=== PATIENT | male | born 1970 | race African-American/Black ===

== ENCOUNTER → 2016-08-06 | Outpatient (CLI) | payer BC ==
[~2016-08-06] MED LIST: DICY10CA59 PO; FAMO40TA72 PO; ONDA4TAB8 PO; PANT40TA2 PO; SUCR1ORA5 PO
--- NOTE | 2016-08-06 11:26 | Diagnostic Imaging Report ---
INDICATION: Headache. Dizziness. Lightheadedness. TECHNIQUE: Routine non contrast-enhanced axial images were obtained from the skull base to the vertex. COMPARISON: None. FINDINGS: The ventricles and cortical sulci are normal in size and contour. There is no midline shift or mass-effect. No acute intra-axial hemorrhage is seen. There are no abnormal areas of increased or decreased density to suggest acute hemorrhage or edema. No extra-axial masses or collections are present. The bony calvarium is intact. The visualized paranasal sinuses are unremarkable. The mastoid air cells are clear. IMPRESSION: 1. No acute intracranial abnormality. No CT evidence of mass, acute infarct or intracranial hemorrhage. Dictated by: Dictated on workstation # [id number]
[2016-08-06 11:35] LABS: MEAN PLATELET VOLUME 9.4 FL (7.4-10.4); RED BLOOD COUNT 5.43 10^6/uL (4.35-5.85); RED CELL DISTRIBUTION WIDTH 14.7 % (10.0-14.5); WHITE BLOOD COUNT 9.5 10^3/uL (4.3-11.0)
[2016-08-06 11:53] LABS: ALANINE AMINOTRANSFERASE 13 U/L (0-55); ALBUMIN 4.1 G/DL (3.2-4.5); ANION GAP 10 MMOL/L (5-14); ASPARTATE AMINO TRANSFERASE 15 U/L (5-34); BILIRUBIN,TOTAL 0.6 MG/DL (0.1-1.0); BLOOD UREA NITROGEN 14 MG/DL (7-18); BUN/CREATININE RATIO 12; CALCIUM 9.2 MG/DL (8.5-10.1); CARBON DIOXIDE 24 MMOL/L (21-32); CHLORIDE 107 MMOL/L (98-107); CREATININE SERUM 1.14 MG/DL (0.60-1.30); GFR ESTIMATED > 60; GLUCOSE 74 MG/DL (70-105); SODIUM 141 MMOL/L (135-145); TOTAL PROTEIN 7.5 G/DL (6.4-8.2)
[2016-08-06 12:13] LABS: THYROID STIMULATING HORMONE 0.87 UIU/ML (0.35-4.94)
--- NOTE | 2016-08-06 15:11 | Diagnostic Imaging Report ---
EXAMINATION: Cervical spine. INDICATION: Neck pain. AP, lateral, and odontoid views were obtained. There are no prior studies available for comparison. FINDINGS: The lateral view does show mild straightening of the cervical spine. This may be secondary to muscle spasm and/or positioning. There is also narrowing of the disc space at C6-7. The other intervertebral spaces are fairly well maintained. There is no fracture or acute bony abnormality evident. There is no sign of retropharyngeal edema. The lung apices are clear. Incidental note is made of metallic wires overlying the right maxilla. IMPRESSION: 1. There is no evidence for an acute bony abnormality. 2. There is degenerative disc disease at C6-7. If there is clinical concern regarding spinal stenosis or nerve root encroachment at this level, then MRI would be recommended for further study. If MRI is contemplated, then the nature of the metallic wires overlying the right maxilla should be determined to assure that the MRI exam can be performed safely. Dictated by: Dictated on workstation # [id number]
== END ==
LOC: RAD 10:53
PROVIDERS: ATTEND Nurse Practitioner Family
DX: M50.323 Other cervical disc degeneration at C6-C7 level (principal); R42 Dizziness and giddiness; R51 Headache
CPT/HCPCS: 36415; 70450; 72040; 80053; 84439; 84443; 85027

== ENCOUNTER → 2016-08-07 | Outpatient (CLI) | payer BC | LOC: CARD 13:03 | PROVIDERS: ATTEND Nurse Practitioner Family | DX: R07.9 Chest pain, unspecified (principal); R42 Dizziness and giddiness | CPT/HCPCS: 93005 ==

== ENCOUNTER 2016-08-27 18:01 | Emergency (ER) | payer BC ==
[~2016-08-27] VITALS: Ht 188 cm; Wt 86.2 kg
[2016-08-27] MEDS ORDERED: KETOROLAC 30 MG/ML VIAL IVP STA (18:05)
[2016-08-27] MEDS ORDERED: LACTATED RINGERS 1,000 ML IV ONE (18:05)
--- NOTE | 2016-08-27 18:11 | ED Abdominal Pain ---
General Stated Complaint: STOMACH PAIN Source of Information: Patient History of Present Illness Time Seen By Provider: 18:00 Initial Comments PT ARRIVES VIA POV--PT IN POSITION ON WAITING ROOM FLOOR AND WANTED WHEELCHAIR TO GET TO ROOM C/O SEVERE MID ABDOMINAL PAIN SINCE 1500 TODAY--BEGAN WHILE AT WORK C/O NAUSEA AND VOMITING MULTIPLE TIMES SINCE 1500 --UNKNOWN #--STATES "ALL DAY SINCE 3:00 PM" NO DIARRHEA NO FEVER PT STATES HE HAS HAD PANCREATITIS IN THE PAST AND THIS FEELS THE SAME DENIES ANY ALCOHOL USE FOR YEARS STATES HE HAS NOT EATEN OR DRANK ANYTHING SINCE YESTERDAY PT WANTING DILAUDID SOON HE ARRIVES. PCP: [facility] Allergies and Home Medications Allergies Coded Allergies: No Known Drug Allergies (Unverified , 08/27/16) Home Medications Dicyclomine HCl 10 Mg Capsule, 10 MG PO Q6H PRN for ABDOMINAL PAIN, #15 Prescribed by: SHARMIN GARCIA on 08/27/162034 Famotidine 40 Mg Tablet, 40 MG PO DAILY, #30 Prescribed by: SHARMIN GARCIA on 08/27/162034 Ondansetron 4 Mg Tab.rapdis, 8 MG PO Q4H, #15 Prescribed by: SHARMIN GARCIA on 08/27/162034 Pantoprazole Sodium 40 Mg Tablet.dr, 40 MG PO DAILY, #15 Prescribed by: SHARMIN GARCIA on 08/27/162034 Sucralfate 1 Gm/10 Ml Oral.susp, 1 GM PO QID AC AND HS, #400 Prescribed by: SHARMIN GARCIA on 08/27/162034 Review of Systems Constitutional: no symptoms reported, No fever Respiratory: No Symptoms Reported Cardiovascular: No Symptoms Reported Gastrointestinal: See HPI, Abdominal Pain, Nausea, Poor Appetite, Poor Fluid Intake, Vomiting Genitourinary: No Symptoms Reported Musculoskeletal: no symptoms reported Skin: no symptoms reported Psychiatric/Neurological: No Symptoms Reported Endocrine: No Symptoms Reported Hematologic/Lymphatic: No Symptoms Reported Past Ishcple-Ppdmjc-Qvwhrb Hx Patient Social History Alcohol Use: Past History (HISTORY OF HEAVY USE/ABUSE--CLAIMS NONE IN YEARS, PER PT ON 08/27/16) Recreational Drug Use: No Smoking Status: Current Everyday Smoker Type Used: Cigars Surgeries HX Surgeries: Yes (EGD) Respiratory Hx Respiratory Disorders: No Cardiovascular Hx Cardiac Disorders: No Neurological Hx Neurological Disorders: No Reproductive System Hx Reproductive Disorders: No Genitourinary Hx Genitourinary Disorders: No Gastrointestinal Hx Gastrointestinal Disorders: Yes Gastrointestinal Disorders: Pancreatitis Musculoskeletal Hx Musculoskeletal Disorders: No Endocrine Hx Endocrine Disorders: No HEENT HX ENT Disorders: No Cancer Hx Cancer: No Psychosocial Hx Psychiatric Problems: No Integumentary HX Skin/Integumentary Disorder: No Blood Transfusions Hx Blood Disorders: No Physical Exam Vital Signs VS - Last 72 Hours, by Label 08/27/16 08/27/16 18:32 21:13 Temp 96.8 96.8 Pulse 70 74 Resp 18 18 B/P (MAP) 172/100 Pulse Ox 100 100 O2 Delivery Room Air Capillary Refill : General Appearance: WD/WN, other (VERY DRAMATIC, WRITHING, HOLDING MID ABDOMEN , MOANING. KICKING LEGS ON BED. 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, no motor/sensory deficits, alert, oriented x 3 Skin: normal color (PT IS BLACK), warm/dry Progress/Results/Core Measures Results/Orders Lab Results Laboratory Tests Test 08/27/16 18:08 08/27/16 20:46 Range/Units White Blood Count 16.7 H 4.3-11.0 10^3/uL Red Blood Count 4.93 4.35-5.85 10^6/uL Hemoglobin 14.6 13.3-17.7 G/DL Hematocrit 41 40-54 % Mean Corpuscular Volume 84 80-99 FL Mean Corpuscular Hemoglobin 30 25-34 PG Mean Corpuscular Hemoglobin Concent 35 32-36 G/DL Red Cell Distribution Width 14.4 10.0-14.5 % Platelet Count 238 130-400 10^3/uL Mean Platelet Volume 9.4 7.4-10.4 FL Neutrophils (%) (Auto) 58 42-75 % Lymphocytes (%) (Auto) 36 12-44 % Monocytes (%) (Auto) 6 0-12 % Eosinophils (%) (Auto) 1 0-10 % Basophils (%) (Auto) 0 0-10 % Neutrophils # (Auto) 9.6 H 1.8-7.8 X 10^3 Lymphocytes # (Auto) 5.9 H 1.0-4.0 X 10^3 Monocytes # (Auto) 1.0 0.0-1.0 X 10^3 Eosinophils # (Auto) 0.1 0.0-0.3 10^3/uL Basophils # (Auto) 0.0 0.0-0.1 10^3/uL Neutrophils % (Manual) 47 % Lymphocytes % (Manual) 51 % Monocytes % (Manual) 2 % Eosinophils % (Manual) 0 % Basophils % (Manual) 0 % Band Neutrophils 0 % Blood Morphology Comment NORMAL Prothrombin Time 13.4 12.2-14.7 SEC INR Comment 1.1 0.8-1.4 Activated Partial Thromboplast Time 31 24-35 SEC Sodium Level 141 135-145 MMOL/L Potassium Level 3.7 3.6-5.0 MMOL/L Chloride Level 107 98-107 MMOL/L Carbon Dioxide Level 20 L 21-32 MMOL/L Anion Gap 14 5-14 MMOL/L Blood Urea Nitrogen 16 7-18 MG/DL Creatinine 0.98 0.60-1.30 MG/DL Estimat Glomerular Filtration Rate > 60 BUN/Creatinine Ratio 16 Glucose Level 90 70-105 MG/DL Calcium Level 9.2 8.5-10.1 MG/DL Magnesium Level 1.8 1.8-2.4 MG/DL Total Bilirubin 0.8 0.1-1.0 MG/DL Aspartate Amino Transf (AST/SGOT) 27 5-34 U/L Alanine Aminotransferase (ALT/SGPT) 16 0-55 U/L Alkaline Phosphatase 89 40-136 U/L Total Protein 7.2 6.4-8.2 G/DL Albumin 4.1 3.2-4.5 G/DL Amylase Level 160 H 25-125 U/L Lipase 166 H 8-78 U/L Serum Alcohol < 10 <10 MG/DL Urine Color YELLOW Urine Clarity CLEAR Urine pH 8 5-9 Urine Specific [place] 1.010 L 1.016-1.022 Urine Protein NEGATIVE NEGATIVE Urine Glucose (UA) NEGATIVE NEGATIVE Urine Ketones 3+ H NEGATIVE Urine Nitrite NEGATIVE NEGATIVE Urine Bilirubin NEGATIVE NEGATIVE Urine Urobilinogen NORMAL NORMAL MG/DL Urine Leukocyte Esterase NEGATIVE NEGATIVE Urine RBC (Auto) NEGATIVE NEGATIVE Urine RBC NONE /HPF Urine WBC RARE /HPF Urine Crystals NONE /LPF Urine Bacteria NEGATIVE /HPF Urine Casts NONE /LPF Urine Mucus NEGATIVE /LPF Urine Culture Indicated NO Urine Opiates Screen NEGATIVE NEGATIVE Urine Oxycodone Screen NEGATIVE NEGATIVE Urine Methadone Screen NEGATIVE NEGATIVE Urine Propoxyphene Screen NEGATIVE NEGATIVE Urine Barbiturates Screen NEGATIVE NEGATIVE Ur Tricyclic Antidepressants Screen NEGATIVE NEGATIVE Urine Phencyclidine Screen NEGATIVE NEGATIVE Urine Amphetamines Screen NEGATIVE NEGATIVE Urine Methamphetamines Screen NEGATIVE NEGATIVE Urine Benzodiazepines Screen NEGATIVE NEGATIVE Urine Cocaine Screen NEGATIVE NEGATIVE Urine Cannabinoids Screen POSITIVE H NEGATIVE My Orders Orders - SHARMIN GARCIA DO Saline Lock/Iv-Start (08/27/16 18:05) Monitor-Rhythm Ecg Trace Only (08/27/16 18:05) Ct Abdomen/Pelvis W (08/27/16 18:05) Alcohol (08/27/16 18:05) Amylase (08/27/16 18:05) Cbc With Automated Diff (08/27/16 18:05) Comprehensive Metabolic Panel (08/27/16 18:05) Drug Screen Stat (Urine) (08/27/16 18:05) Lipase (08/27/16 18:05) Magnesium (08/27/16 18:05) Protime With Inr (08/27/16 18:05) Partial Thromboplastin Time (08/27/16 18:05) Ua Culture If Indicated (08/27/16 18:05) Acute Abd Series (08/27/16 18:05) Ondansetron Injection (Zofran Injectio (08/27/16 18:15) Ketorolac Injection (Toradol Injection) (08/27/16 18:05) Saline Lock/Iv-Start (08/27/16 18:05) Lactated Ringers (Lr 1000 Ml Iv Solution (08/27/16 18:05) Pantoprazole Injection (Protonix Injecti (08/27/16 18:15) Famotidine Injection (Pepcid Injection) (08/27/16 18:15) Iohexol Injection (Omnipaque 350 Mg/Ml 1 (08/27/16 18:15) Ns (Ivpb) (Sodium Chloride 0.9% Ivpb Bag (08/27/16 18:15) Manual Differential (08/27/16 18:08) Dicyclomine Injection (Bentyl Injection) (08/27/16 18:45) Diphenhydramine Injection (Benadryl Inje (08/27/16 18:45) Lidocaine 2% Viscous 15 Ml (Xylocaine Vi (08/27/16 20:15) Antacid Suspension (Mylanta Suspension (08/27/16 20:15) Medications Given in ED Current Medications Medications Dose Ordered Sig/Ayaka Route Start Time Stop Time Status Last Admin Dose Admin Al Hydrox/Mg Hydrox/Simethicone 30 ml ONCE ONCE PO 08/27/16 20:15 08/27/16 20:16 DC 08/27/16 20:11 30 ML Dicyclomine HCl 20 mg ONCE ONCE IM 08/27/16 18:45 08/27/16 18:46 DC 08/27/16 18:46 20 MG Diphenhydramine HCl 50 mg ONCE ONCE IVP 08/27/16 18:45 08/27/16 18:46 DC 08/27/16 18:46 50 MG Famotidine 40 mg ONCE ONCE IVP 08/27/16 18:15 08/27/16 18:16 DC 08/27/16 18:29 40 MG Iohexol 100 ml ONCE ONCE IV 08/27/16 18:15 08/27/16 18:16 DC 08/27/16 19:05 100 ML Lactated Ringer's 1,000 ml @ 0 mls/hr Q0M ONCE IV 08/27/16 18:05 08/27/16 18:08 DC 08/27/16 18:30 0 MLS/HR Lidocaine HCl 5 ml ONCE ONCE PO 08/27/16 20:15 08/27/16 20:16 DC 08/27/16 20:11 5 ML Ondansetron HCl 8 mg ONCE ONCE IVP 08/27/16 18:15 08/27/16 18:16 DC 08/27/16 18:29 8 MG Pantoprazole 40 mg ONCE ONCE IV 08/27/16 18:15 08/27/16 18:16 DC 08/27/16 18:29 40 MG Sodium Chloride 100 ml ONCE ONCE IV 08/27/16 18:15 08/27/16 18:16 DC 08/27/16 19:05 80 ML Vital Signs/I&O Vital Sign - Last 12Hours 08/27/16 08/27/16 18:32 21:13 Temp 96.8 96.8 Pulse 70 74 Resp 18 18 B/P (MAP) 172/100 Pulse Ox 100 100 O2 Delivery Room Air Intake and Output 08/28/16 00:00 Intake Total 1000 ml Balance 1000 ml Progress Note : Progress Note VOMITED ON ARRIVAL--LARGE AMOUNT OF UNDIGESTED FOOD GIVEN MULTIPLE MEDS AND NO FURTHER VOMITING PT RESTING QUIETLY/ SLEEPING IN PRONE POSITION DURING REMAINDER OF ER STAY PT WALKS UPRIGHT AND MOVES QUICKLY WITHOUT ANY DIFFICULTY AT DISMISSAL. Diagnostic Imaging Comments ACUTE ABDOMEN XRAYS--NO ACUTE PROCESS CT ABDOMEN/PELVIS--MILD THICKENING OF DISTAL ESOPHAGUS, OTHERWISE NO ACUTE PROCESS PER RADIOLOGIST REPORTS @ 1952 Reviewed: Reviewed by Me Departure Impression Impression: Primary Impression: Esophagitis Additional Impression: MILD PANCREATITIS Disposition: HOME, SELF-CARE Condition: Improved Departure-Patient Inst. Referrals: [facility] [place] Instructions: Acid Reflux (Gastroesophageal Reflux Disease), Adult (DC) , Pancreatitis (DC) Add. Discharge Instructions: CLEAR LIQUIDS--WATER, BROTH, JELLO, GATORADE NO FOOD OF ANY KIND UNTIL YOU ARE RECHECKED AND CLEARED BY YOUR DR FOLLOW UP WITH YOUR DR IN 1-2 DAYS FOR FURTHER CARE Scripts Ondansetron (Zofran Odt) 4 Mg Tab.rapdis 8 MG PO Q4H for Nausea/Vomiting, #15 TAB Prov: JOSEALIEA K DO 08/27/16 Famotidine (Pepcid) 40 Mg Tablet 40 MG PO DAILY, #30 TAB Prov: JOSE,SHARMIN K DO 08/27/16 Pantoprazole Sodium (Protonix) 40 Mg Tablet.dr 40 MG PO DAILY, #15 TAB Prov: JOSEALIEA K DO 08/27/16 Sucralfate (Carafate) 1 Gm/10 Ml Oral.susp 1 GM PO QID AC AND HS, #400 ML Prov: JOSE,SHARMIN K DO 08/27/16 Dicyclomine HCl (Bentyl) 10 Mg Capsule 10 MG PO Q6H Y for ABDOMINAL PAIN, #15 CAP Prov: JOSE,SHARMIN K DO 08/27/16 JOSESHARMIN K DO Aug 27, 2016 18:11
[2016-08-27] MEDS ORDERED: IOHEXOL 350 MG/ML 100 ML (OMNIPAQUE 350) VIAL IV ONE (18:15)
[2016-08-27] MEDS ORDERED: NS 100 ML (IVPB) BAG IV ONE (18:15)
[2016-08-27] MEDS ORDERED: ONDANSETRON 4 MG/2 ML (SDV) Z0FRAN IVP ONE (18:15)
[2016-08-27] MEDS ORDERED: PANTOPRAZOLE 40 MG/10 ML (PROTONIX) VIAL IV ONE (18:15)
[2016-08-27] MEDS ORDERED: FAMOTIDINE 20MG/2ML IV (PEPCID) IVP ONE (18:15)
[2016-08-27 18:16] LABS: BASOPHILS % (AUTO) 0 % (0-10); EOSINOPHILS # (AUTO) 0.1 10^3/uL (0.0-0.3); EOSINOPHILS % (AUTO) 1 % (0-10); LYMPHOCYTES # (AUTO) 5.9 X 10^3 (1.0-4.0); LYMPHOCYTES % (AUTO) 36 % (12-44); MEAN CORPUSCULAR HEMOGLOBIN 30 PG (25-34); MEAN CORPUSCULAR HGB CONC 35 G/DL (32-36); MEAN CORPUSCULAR VOLUME 84 FL (80-99); MEAN PLATELET VOLUME 9.4 FL (7.4-10.4); MONOCYTES % (AUTO) 6 % (0-12); NEUTROPHILS # (AUTO) 9.6 X 10^3 (1.8-7.8); NEUTROPHILS % (AUTO) 58 % (42-75); PLATELET COUNT 238 10^3/uL (130-400); RED BLOOD COUNT 4.93 10^6/uL (4.35-5.85); RED CELL DISTRIBUTION WIDTH 14.4 % (10.0-14.5); WHITE BLOOD COUNT 16.7 10^3/uL (4.3-11.0)
[2016-08-27 18:26] LABS: INR 1.1 (0.8-1.4); PROTHROMBIN TIME PATIENT 13.4 SEC (12.2-14.7)
[2016-08-27 18:38] LABS: ALANINE AMINOTRANSFERASE 16 U/L (0-55); ALBUMIN 4.1 G/DL (3.2-4.5); AMYLASE 160 U/L (25-125); ANION GAP 14 MMOL/L (5-14); ASPARTATE AMINO TRANSFERASE 27 U/L (5-34); BILIRUBIN,TOTAL 0.8 MG/DL (0.1-1.0); BLOOD UREA NITROGEN 16 MG/DL (7-18); BUN/CREATININE RATIO 16; CALCIUM 9.2 MG/DL (8.5-10.1); CARBON DIOXIDE 20 MMOL/L (21-32); CHLORIDE 107 MMOL/L (98-107); CREATININE SERUM 0.98 MG/DL (0.60-1.30); GFR ESTIMATED > 60; GLUCOSE 90 MG/DL (70-105); LIPASE 166 U/L (8-78); MAGNESIUM 1.8 MG/DL (1.8-2.4); POTASSIUM 3.7 MMOL/L (3.6-5.0); SODIUM 141 MMOL/L (135-145); TOTAL PROTEIN 7.2 G/DL (6.4-8.2)
[2016-08-27 18:43] LABS: BAND NEUTROPHILS 0 %; BASOPHILS % (MANUAL) 0 %; EOSINOPHILS % (MANUAL) 0 %; LYMPHOCYTES % (MANUAL) 51 %; NEUTROPHILS % (MANUAL) 47 %
[2016-08-27] MEDS ORDERED: DICYCLOMINE 10 MG/ML (BENTYL) 2 ML AMP IM ONE (18:45)
[2016-08-27] MEDS ORDERED: diphenhydrAMINE 50 MG/ML INJ (BENADRYL) IVP ONE (18:45)
[2016-08-27 18:51] LABS: ALCOHOL < 10 MG/DL (<10)
--- NOTE | 2016-08-27 19:16 | Diagnostic Imaging Report ---
INDICATION: Abdominal pain, nausea, and vomiting. COMPARISON: None available. TECHNIQUE: Four radiographs of the chest and abdomen dated August 27, 2016. FINDINGS: The cardiac silhouette is within normal limits. No significant pulmonary vascular congestion. The lungs are clear. No pleural effusion. No pneumothorax. No acute osseous abnormality within the chest. Gas and stool is noted within the colon, including extending to the lower pelvis. No dilated loops of small bowel. No differential air-fluid levels. No free air. No suspicious calcifications overlying the renal shadows. Phleboliths within the lower pelvis. No acute osseous abnormality. IMPRESSION: No acute abnormality identified. Dictated by: Dictated on workstation # [id number]
--- NOTE | 2016-08-27 19:42 | Diagnostic Imaging Report ---
PROCEDURE: CT abdomen and pelvis with contrast. TECHNIQUE: Multiple contiguous axial images were obtained through the abdomen and pelvis after administration of intravenous contrast. INDICATION: Abdominal pain. COMPARISON: None available. FINDINGS: The visualized lung bases are clear. Mild thickening of the distal esophagus. The liver, spleen, adrenal glands, and pancreas are unremarkable. The gallbladder is unremarkable. The kidneys are unremarkable. No aneurysmal dilatation of the abdominal aorta. Minimal vascular calcifications. The urinary bladder is unremarkable. What is felt to relate to the appendix is unremarkable. No evidence of bowel obstruction or pneumatosis. No significant adenopathy, free air, or free fluid within the abdomen or pelvis. 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 Partial lumbarization of the S1 vertebral body. Endplate degenerative changes are noted at L4/L5 and L5/S1. No acute osseous abnormality. IMPRESSION: 1. Mild thickening of the distal esophagus, favored to relate to underlying esophagitis. 2. No evidence of acute appendicitis. 3. Additional findings as described above. Dictated by: Dictated on workstation # [id number]
[2016-08-27] MEDS ORDERED: ANTACID SUSP 30 ML UDC (MYLANTA) PO ONE (20:15)
[2016-08-27] MEDS ORDERED: LIDOCAINE 2% VISCOUS 15 ML UDC PO ONE (20:15)
[2016-08-27] MEDS ORDERED: PANT40TA2 PO (20:35)
[2016-08-27] MEDS ORDERED: SUCR1ORA5 PO (20:35)
[2016-08-27] MEDS ORDERED: FAMO40TA72 PO (20:35)
[2016-08-27] MEDS ORDERED: DICY10CA59 PO (20:35)
[2016-08-27] MEDS ORDERED: ONDA4TAB8 PO (20:35)
[2016-08-27 20:55] LABS: BILIRUBIN,URINE NEGATIVE (NEGATIVE); KETONES,URINE 3+ (NEGATIVE); LEUKOCYTE ESTERASE ,URINE NEGATIVE (NEGATIVE); NITRITE,URINE NEGATIVE (NEGATIVE); PH,URINE 8 (5-9); PROTEIN,URINE NEGATIVE (NEGATIVE); UROBILINOGEN,URINE NORMAL (NORMAL)
[2016-08-27 21:07] LABS: WBC,URINE RARE /HPF
[2016-08-27 21:13] VITALS: BP 137/96
== END 2016-08-27 21:13 | disposition home or self-care (01) ==
LOC: EDUNIT# 18:01 → ER 18:03
DX: K20.9 Esophagitis, unspecified (principal); R11.2 Nausea with vomiting, unspecified; F17.210 Nicotine dependence, cigarettes, uncomplicated; Z87.19 Personal history of other diseases of the digestive system
CPT/HCPCS: 36415; 74022; 74177; 80053; 80306; 80320; 81000; 82150; 83690; 83735; 85007; 85027; 85610; 85730; 93041; 96361; 96372; 96374; 96375

== ENCOUNTER 2016-12-11 21:50 | Emergency (ER) | payer SELFPAY ==
[~2016-12-11] VITALS: Ht 198.1 cm; Wt 90.7 kg
[2016-12-11] MEDS ORDERED: fentaNYL INJECTION 100 MCG/2 ML AMP IVP STA ×2 (21:56→23:28)
[2016-12-11] MEDS ORDERED: LORazepam INJ 2 MG/ML (ATIVAN) VIAL IVP ONE (22:00)
[2016-12-11 22:04] LABS: BASOPHILS # (AUTO) 0.1 10^3/uL (0.0-0.1); BASOPHILS % (AUTO) 0 % (0-10); EOSINOPHILS % (AUTO) 0 % (0-10); LYMPHOCYTES # (AUTO) 3.8 X 10^3 (1.0-4.0); LYMPHOCYTES % (AUTO) 18 % (12-44); MEAN CORPUSCULAR HEMOGLOBIN 29 PG (25-34); MEAN CORPUSCULAR HGB CONC 35 G/DL (32-36); MEAN CORPUSCULAR VOLUME 83 FL (80-99); MEAN PLATELET VOLUME 9.7 FL (7.4-10.4); MONOCYTES # (AUTO) 1.1 X 10^3 (0.0-1.0); MONOCYTES % (AUTO) 5 % (0-12); NEUTROPHILS # (AUTO) 15.5 X 10^3 (1.8-7.8); NEUTROPHILS % (AUTO) 76 % (42-75); PLATELET COUNT 237 10^3/uL (130-400); RED BLOOD COUNT 5.53 10^6/uL (4.35-5.85); RED CELL DISTRIBUTION WIDTH 14.6 % (10.0-14.5); WHITE BLOOD COUNT 20.5 10^3/uL (4.3-11.0)
--- NOTE | 2016-12-11 22:04 | ED Abdominal Pain ---
General Stated Complaint: ABD PAIN Source of Information: Patient, EMS Exam Limitations: No Limitations History of Present Illness Time Seen By Provider: 21:53 Initial Comments here by EMS with onset of central abdominal pain that goes up and down to the midline of the abdomen since 5 p.m. States he has severe cramping and pain. He is breathing fast and also has all over body cramping. Reports nausea and vomiting. EMS initiated IV did give 4 mg of Zofran IV and started 1 L normal saline bolus which is running. Patient denies other complaints Timing/Duration: 4-6 Hours Severity/Quality: Moderate, Severe Location: Other (central) Radiation: No Radiation (superior-inferior midline) Activities at Onset: None Modifying Factors: Worsens With Eating, Worsens With Movement, Worsens With Palpation, Worsens With Vomiting Associated Symptoms: No Back Pain, No Chest Pain, No Fever/Chills, Nausea/ Vomiting, No Swelling/Mass in Abdomen, No Weakness Allergies and Home Medications Allergies Coded Allergies: No Known Drug Allergies (Unverified , 08/27/16) Home Medications Dicyclomine HCl 10 Mg Capsule, 10 MG PO Q6H PRN for ABDOMINAL PAIN, #15 Prescribed by: SHARMIN GARCIA on 08/27/162034 Famotidine 40 Mg Tablet, 40 MG PO DAILY, #30 Prescribed by: SHARMIN GARCIA on 08/27/162034 Ondansetron 4 Mg Tab.rapdis, 8 MG PO Q4H, #15 Prescribed by: SHARMIN GARCIA on 08/27/162034 Pantoprazole Sodium 40 Mg Tablet.dr, 40 MG PO DAILY, #15 Prescribed by: SHARMIN GARCIA on 08/27/162034 Sucralfate 1 Gm/10 Ml Oral.susp, 1 GM PO QID AC AND HS, #400 Prescribed by: SHARMIN GARCIA on 08/27/162034 Review of Systems Constitutional: see HPI, No chills, No fever EENTM: No Symptoms Reported Respiratory: See HPI, Shortness of Air Cardiovascular: No Symptoms Reported Gastrointestinal: See HPI, Abdominal Pain, Denies Diarrhea, Nausea, Vomiting Genitourinary: No Symptoms Reported Musculoskeletal: see HPI, No joint pain, muscle pain, muscle cramps Skin: no symptoms reported Psychiatric/Neurological: No Symptoms Reported All Other Systems Reviewed Negative Unless Noted: Yes Past Hhrtvgf-Yvlmhb-Bnnrmm Hx Patient Social History Alcohol Use: Denies Use Recreational Drug Use: No Smoking Status: Current Everyday Smoker Type Used: Cigars Recent Hopitalizations: No Surgeries HX Surgeries: Yes (EGD) Respiratory Hx Respiratory Disorders: No Cardiovascular Hx Cardiac Disorders: No Neurological Hx Neurological Disorders: No Reproductive System Hx Reproductive Disorders: No Genitourinary Hx Genitourinary Disorders: No Gastrointestinal Hx Gastrointestinal Disorders: Yes Gastrointestinal Disorders: Pancreatitis Musculoskeletal Hx Musculoskeletal Disorders: No Endocrine Hx Endocrine Disorders: No HEENT HX ENT Disorders: No Cancer Hx Cancer: No Psychosocial Hx Psychiatric Problems: No Integumentary HX Skin/Integumentary Disorder: No Blood Transfusions Hx Blood Disorders: No Reviewed Nursing Assessment Reviewed/Agree w Nursing PMH: Yes Family Medical History Significant Family History: No Pertinent Family Hx Physical Exam Vital Signs VS - Last 72 Hours, by Label 12/11/16 12/11/16 21:50 23:32 Temp 96.3 96.3 Pulse 69 Resp 20 B/P (MAP) 143/114 Pulse Ox 97 O2 Delivery Room Air Capillary Refill : General Appearance: WD/WN, moderate distress (abdominal pain and nausea) HEENT: PERRL/EOMI, pharynx normal Neck: full range of motion, supple Respiratory: lungs clear, normal breath sounds Cardiovascular: no murmur, tachycardia Peripheral Pulses: 2+ Dorsalis Pedis (R), 2+ Left Dors-Pedis (L), 2+ Radial Pulses (R), 2+ Radial Pulses (L) Gastrointestinal: soft, tenderness (global) Extremities: normal inspection, other (muscle tenderness throughout) Back: normal inspection, no CVA tenderness, no vertebral tenderness Neurologic/Psychiatric: alert, oriented x 3 Skin: normal color, warm/dry Progress/Results/Core Measures Results/Orders Lab Results Laboratory Tests Test 12/11/16 21:56 12/11/16 23:30 Range/Units White Blood Count 20.5 H 4.3-11.0 10^3/uL Red Blood Count 5.53 4.35-5.85 10^6/uL Hemoglobin 16.0 13.3-17.7 G/DL Hematocrit 46 40-54 % Mean Corpuscular Volume 83 80-99 FL Mean Corpuscular Hemoglobin 29 25-34 PG Mean Corpuscular Hemoglobin Concent 35 32-36 G/DL Red Cell Distribution Width 14.6 H 10.0-14.5 % Platelet Count 237 130-400 10^3/uL Mean Platelet Volume 9.7 7.4-10.4 FL Neutrophils (%) (Auto) 76 H 42-75 % Lymphocytes (%) (Auto) 18 12-44 % Monocytes (%) (Auto) 5 0-12 % Eosinophils (%) (Auto) 0 0-10 % Basophils (%) (Auto) 0 0-10 % Neutrophils # (Auto) 15.5 H 1.8-7.8 X 10^3 Lymphocytes # (Auto) 3.8 1.0-4.0 X 10^3 Monocytes # (Auto) 1.1 H 0.0-1.0 X 10^3 Eosinophils # (Auto) 0.0 0.0-0.3 10^3/uL Basophils # (Auto) 0.1 0.0-0.1 10^3/uL Neutrophils % (Manual) 77 % Lymphocytes % (Manual) 21 % Monocytes % (Manual) 1 % Eosinophils % (Manual) 0 % Basophils % (Manual) 0 % Band Neutrophils 1 % Blood Morphology Comment NORMAL Sodium Level 138 135-145 MMOL/L Potassium Level 4.0 3.6-5.0 MMOL/L Chloride Level 104 98-107 MMOL/L Carbon Dioxide Level 15 L 21-32 MMOL/L Anion Gap 19 H 5-14 MMOL/L Blood Urea Nitrogen 23 H 7-18 MG/DL Creatinine 1.98 H 0.60-1.30 MG/DL Estimat Glomerular Filtration Rate 45 BUN/Creatinine Ratio 12 Glucose Level 126 H 70-105 MG/DL Calcium Level 10.3 H 8.5-10.1 MG/DL Magnesium Level 2.1 1.8-2.4 MG/DL Total Bilirubin 1.3 H 0.1-1.0 MG/DL Aspartate Amino Transf (AST/SGOT) 20 5-34 U/L Alanine Aminotransferase (ALT/SGPT) 17 0-55 U/L Alkaline Phosphatase 101 40-136 U/L Total Creatine Kinase 325 H 30-200 U/L Total Protein 8.2 6.4-8.2 GM/DL Albumin 4.6 H 3.2-4.5 GM/DL Amylase Level 59 25-125 U/L Lipase 10 8-78 U/L Salicylates Level < 5.0 L 5.0-20.0 MG/DL Serum Alcohol < 10 <10 MG/DL Urine Color YELLOW Urine Clarity SLIGHTLY CLOUDY Urine pH 5 5-9 Urine Specific [place] 1.025 H 1.016-1.022 Urine Protein 3+ H NEGATIVE Urine Glucose (UA) NEGATIVE NEGATIVE Urine Ketones 3+ H NEGATIVE Urine Nitrite NEGATIVE NEGATIVE Urine Bilirubin 1+ H NEGATIVE Urine Urobilinogen 1 NORMAL MG/DL Urine Leukocyte Esterase 1+ H NEGATIVE Urine RBC (Auto) NEGATIVE NEGATIVE Urine RBC NONE /HPF Urine WBC 0-2 /HPF Urine Squamous Epithelial Cells RARE /HPF Urine Crystals PRESENT H /LPF Urine Calcium Oxalate Crystals FEW H /LPF Urine Bacteria MODERATE H /HPF Urine Casts PRESENT /LPF Urine Hyaline Casts 25-50 H /LPF Urine Mucus MODERATE H /LPF Urine Culture Indicated YES Urine Opiates Screen NEGATIVE NEGATIVE Urine Oxycodone Screen NEGATIVE NEGATIVE Urine Methadone Screen NEGATIVE NEGATIVE Urine Propoxyphene Screen NEGATIVE NEGATIVE Urine Barbiturates Screen NEGATIVE NEGATIVE Ur Tricyclic Antidepressants Screen NEGATIVE NEGATIVE Urine Phencyclidine Screen NEGATIVE NEGATIVE Urine Amphetamines Screen NEGATIVE NEGATIVE Urine Methamphetamines Screen NEGATIVE NEGATIVE Urine Benzodiazepines Screen NEGATIVE NEGATIVE Urine Cocaine Screen NEGATIVE NEGATIVE Urine Cannabinoids Screen POSITIVE H NEGATIVE My Orders Orders - CATHLEEN BERRY MD Alcohol (12/11/16 21:56) Amylase (12/11/16 21:56) Cbc With Automated Diff (12/11/16 21:56) Comprehensive Metabolic Panel (12/11/16 21:56) Drug Screen Stat (Urine) (12/11/16 21:56) Lipase (12/11/16 21:56) Magnesium (12/11/16 21:56) Salicylate (12/11/16 21:56) Ua Culture If Indicated (12/11/16 21:56) Fentanyl Injection (Sublimaze Injection (12/11/16 21:56) Lorazepam Injection (Ativan Injection) (12/11/16 22:00) Creatine Kinase (12/11/16 22:04) Manual Differential (12/11/16 21:56) Saline Lock/Iv-Start (12/11/16 23:26) Ns Iv 1000 Ml (Sodium Chloride 0.9%) (12/11/16 23:26) Fentanyl Injection (Sublimaze Injection (12/11/16 23:28) Famotidine Injection (Pepcid Injection) (12/11/16 23:28) Urine Culture (12/11/16 23:30) Ct Abdomen/Pelvis Wo (12/12/16 00:10) Medications Given in ED Current Medications Medications Dose Ordered Sig/Ayaka Route Start Time Stop Time Status Last Admin Dose Admin Lorazepam 0.5 mg ONCE ONCE IVP 12/11/16 22:00 12/11/16 22:01 DC 12/11/16 22:02 0.5 MG Sodium Chloride 1,000 ml @ 0 mls/hr Q0M ONCE IV 12/11/16 23:26 12/11/16 23:28 DC 12/11/16 23:32 999 MLS/HR Vital Signs/I&O Vital Sign - Last 12Hours 12/11/16 12/11/16 21:50 23:32 Temp 96.3 96.3 Pulse 69 Resp 20 B/P (MAP) 143/114 Pulse Ox 97 O2 Delivery Room Air Progress Note : Progress Note seen and evaluated. IV established by EMS. Labs, UA and UDS ordered. Complete normal saline 1 L bolus ordered. Ativan 0.5 mg IV and fentanyl 50 g IV ordered. Monitor patient. Improved after pain medicine and resting comfortably. Creatinine noted to be elevated as well as ketones in the urine. Repeat normal saline 1 L bolus ordered. Monitor patient. 2325: Pepcid 20 mg IV and fentanyl 75 g IV for stomach upset and cramping legs. Monitor patient. 0100: CT head and pelvis ordered due to elevated white count. 0200: Patient doing much better. By mouth challenge initiated. 0210: Tolerating fluids without difficulty. Patient remains feeling much better. I did discuss with the patient about marijuana use and cyclic vomiting and stomach disorder. He states that he knows he needs to not do that and will quit using marijuana. He will initiate [id number] treatment for gastritis concerns. This previously has been on medications for this. I also discussed with him about follow-up with a surgeon and he will call and make appointment. He will also seek local physician. Discharged home with return precautions. Patient verbalize understanding instructions and agreement with plan. Diagnostic Imaging Diagonstic Imaging: CT Plain Films/CT/US/NM/MRI: abdomen, pelvis Comments Motion artifact and upper abdomen. Appendix not definitively identified in its entirety. No acute inflammatory changes seen in the right lower quadrant. Small and large bowel loops appear unremarkable without obstruction or any acute inflammatory process. No hydronephrosis. No nephrolithiasis or urolithiasis. Reviewed: Reviewed [place] Study, Reviewed by Me Departure Impression Impression: Primary Impression: Nausea and vomiting Qualified Codes: G43.A0 - Cyclical vomiting, not intractable Additional Impression: Acute renal insufficiency Disposition: HOME, SELF-CARE Condition: Improved Departure-Patient Inst. Decision time for Depature: 02:14 Referrals: GENE GOMES MD (PCP/Family) Primary Care Physician Patient Instructions: Acute Abdomen (Belly Pain), Adult (DC), Dehydration, Adult (DC), Nausea and Vomiting, Adult (DC) Add. Discharge Instructions: It is very important that you drink plenty of fluids as your kidney function was elevated. I believe this is related to dehydration. You should avoid marijuana as this increases your risk for cyclic vomiting. It is important that you follow-up with a local physician. You should also follow up with the surgeon listed for recheck and further evaluation related to your stomach problems. Call Dr. Salinas office in the morning for follow-up appointment. Return for worse pain, fever, vomiting, weakness, breathing problems or other concerns as needed. I do recommend that you initiate a 6 week course (three 14 day packs) Of omeprazole 20 mg daily. You can pick this up in the generic pack at the local pharmacy or [facility]. CATHLEEN BERRY MD Dec 11, 2016 22:04
[2016-12-11 22:26] LABS: BAND NEUTROPHILS 1 %; BASOPHILS % (MANUAL) 0 %; EOSINOPHILS % (MANUAL) 0 %; LYMPHOCYTES % (MANUAL) 21 %; NEUTROPHILS % (MANUAL) 77 %
[2016-12-11 22:29] LABS: ALANINE AMINOTRANSFERASE 17 U/L (0-55); ALBUMIN 4.6 GM/DL (3.2-4.5); ALCOHOL < 10 MG/DL (<10); AMYLASE 59 U/L (25-125); ANION GAP 19 MMOL/L (5-14); ASPARTATE AMINO TRANSFERASE 20 U/L (5-34); BILIRUBIN,TOTAL 1.3 MG/DL (0.1-1.0); BLOOD UREA NITROGEN 23 MG/DL (7-18); BUN/CREATININE RATIO 12; CALCIUM 10.3 MG/DL (8.5-10.1); CARBON DIOXIDE 15 MMOL/L (21-32); CHLORIDE 104 MMOL/L (98-107); CREATININE SERUM 1.98 MG/DL (0.60-1.30); GFR ESTIMATED 45; GLUCOSE 126 MG/DL (70-105); LIPASE 10 U/L (8-78); MAGNESIUM 2.1 MG/DL (1.8-2.4); SALICYLATE < 5.0 MG/DL (5.0-20.0); SODIUM 138 MMOL/L (135-145); TOTAL PROTEIN 8.2 GM/DL (6.4-8.2)
[2016-12-11] MEDS ORDERED: NS IV 1000 ML 1,000 ML IV ONE (23:26)
[2016-12-11] MEDS ORDERED: FAMOTIDINE 20MG/2ML IV (PEPCID) IV STA (23:28)
[2016-12-11 23:38] LABS: KETONES,URINE 3+ (NEGATIVE); LEUKOCYTE ESTERASE ,URINE 1+ (NEGATIVE); NITRITE,URINE NEGATIVE (NEGATIVE); PH,URINE 5 (5-9); PROTEIN,URINE 3+ (NEGATIVE); UROBILINOGEN,URINE 1 MG/DL (NORMAL)
[2016-12-11 23:53] LABS: BILIRUBIN,URINE 1+ (NEGATIVE)
[2016-12-11 23:56] LABS: CALCIUM OXALATE CRYSTALS,UR FEW /LPF; SQUAMOUS EPITHELIAL CELL,UR RARE /HPF; WBC,URINE 0-2 /HPF
[2016-12-11 23:57] LABS: HYALINE CASTS, URINE 25-50 /LPF
[2016-12-12 02:30] VITALS: BP 100/78
--- NOTE | 2016-12-12 06:54 | Diagnostic Imaging Report ---
PROCEDURE: CT abdomen and pelvis without contrast. TECHNIQUE: Multiple contiguous axial images were obtained through the abdomen and pelvis without the use of intravenous contrast. INDICATION: Abdominal pain x2 years. Lung bases are clear. Liver appears normal. Gallbladder is present. Spleen is not enlarged. Kidneys and adrenals appear normal. Pancreas appears normal. Small bowel is not dilated. Colon appears normal. There is no intraperitoneal free air or free fluid. There is no evidence for appendicitis or other acute abnormalities in the abdomen. IMPRESSION: Negative CT abdomen/ pelvis. Dictated by: Dictated on workstation # [id number]
== END 2016-12-12 02:30 | disposition home or self-care (01) ==
LOC: EDUNIT# 21:50 → ER 21:51
DX: N28.9 Disorder of kidney and ureter, unspecified (principal); F17.290 Nicotine dependence, other tobacco product, uncomplicated; Z87.19 Personal history of other diseases of the digestive system
CPT/HCPCS: 36415; 74176; 80053; 80306; 80320; 80329; 81000; 82150; 82550; 83690; 83735; 85007; 85027; 87088; 96361; 96374; 96375; 96376

== ENCOUNTER 2017-08-20 12:17 | Emergency (ER) | payer BC ==
[~2017-08-20] VITALS: Ht 198.1 cm; Wt 86.2 kg
[2017-08-20 13:10] LABS: BASOPHILS # (AUTO) 0.1 10^3/uL (0.0-0.1); BASOPHILS % (AUTO) 1 % (0-10); EOSINOPHILS # (AUTO) 0.3 10^3/uL (0.0-0.3); EOSINOPHILS % (AUTO) 3 % (0-10); HEMATOCRIT 45 % (40-54); LYMPHOCYTES % (AUTO) 41 % (12-44); MEAN CORPUSCULAR HEMOGLOBIN 30 PG (25-34); MEAN CORPUSCULAR HGB CONC 34 G/DL (32-36); MEAN CORPUSCULAR VOLUME 89 FL (80-99); MEAN PLATELET VOLUME 9.6 FL (7.4-10.4); MONOCYTES # (AUTO) 0.6 X 10^3 (0.0-1.0); MONOCYTES % (AUTO) 7 % (0-12); NEUTROPHILS # (AUTO) 4.9 X 10^3 (1.8-7.8); NEUTROPHILS % (AUTO) 49 % (42-75); PLATELET COUNT 230 10^3/uL (130-400); RED BLOOD COUNT 5.03 10^6/uL (4.35-5.85); RED CELL DISTRIBUTION WIDTH 15.5 % (10.0-14.5); WHITE BLOOD COUNT 9.9 10^3/uL (4.3-11.0)
--- NOTE | 2017-08-20 13:10 | ED General ---
General Chief Complaint: Dizziness/Syncope Stated Complaint: POSS CARB MONO EXPOSURE Nursing Triage Note: pt reports dizziness/lightheadedness, moore, and generalized weakness x 2 weeks. pt reports last night his carbonmonoxide detector went off and he called the fire department. they told him his furnace was not safe and the levels in the house were high. he spent the night at a hotel but decided to get checked today. Nursing Sepsis Screen: No Definite Risk Source of Information: Patient Exam Limitations: No Limitations History of Present Illness Date Seen by Provider: Aug 20, 2017 Time Seen by Provider: 13:05 Initial Comments To ER with reports of dizziness, lightheadedness, headache, generalized weakness for 2 weeks. He called fire department last night because he suspected he may have a carbon monoxide issue. Fire department confirmed that he did have a, monoxide level that was elevated so he got a hotel room last night. He has not been in his health since last night. His symptoms are still present today. He denies chest pain or shortness of breath. He states that his monoxide issue is being taken care of as he is here. No syncope. Timing/Duration: 1-2 Days Severity: Moderate Associated Systoms: Headaches, Malaise, Nausea/Vomiting Allergies and Home Medications Allergies Coded Allergies: No Known Drug Allergies (Unverified , 08/27/16) Home Medications Dicyclomine HCl 10 Mg Capsule, 10 MG PO Q6H PRN for ABDOMINAL PAIN Prescribed by: SHARMIN GARCIA on 08/27/162034 Famotidine 40 Mg Tablet, 40 MG PO DAILY Prescribed by: SHARMIN GARCIA on 08/27/162034 Ondansetron 4 Mg Tab.rapdis, 8 MG PO Q4H Prescribed by: SHARMIN GARCIA on 08/27/162034 Pantoprazole Sodium 40 Mg Tablet.dr, 40 MG PO DAILY Prescribed by: SHARMIN GARCIA on 08/27/162034 Sucralfate 1 Gm/10 Ml Oral.susp, 1 GM PO QID AC AND HS Prescribed by: SHARMIN GARCIA on 08/27/162034 Patient Home Medication List Home Medication List Reviewed: Yes Constitutional: see HPI, malaise, weakness EENTM: see HPI Respiratory: no symptoms reported Cardiovascular: no symptoms reported Gastrointestinal: nausea Genitourinary: no symptoms reported Musculoskeletal: no symptoms reported Psychiatric/Neurological: Headache, Other (dizziness) Hematologic/Lymphatic: No Symptoms Reported Past Cbqpyed-Kqssgt-Dzmpum Hx Patient Social History Alcohol Use: Denies Use Recreational Drug Use: No Smoking Status: Current Everyday Smoker Type Used: Cigars Recent Foreign Travel: No Contact w/Someone Who Travel: No Recent Infectious Disease Expo: No Recent Hopitalizations: No Physical Abuse: No Sexual Abuse: No Mistreated: No Surgeries History of Surgeries: Yes (EGD) Respiratory History of Respiratory Disorde: No Cardiovascular History of Cardiac Disorders: No Neurological History of Neurological Disord: No Reproductive System Hx Reproductive Disorders: No Genitourinary History of Genitourinary Disor: No Gastrointestinal History of Gastrointestinal Di: Yes Gastrointestinal Disorders: Pancreatitis, Esophagitis Musculoskeletal History of Musculoskeletal Dis: No Endocrine History of Endocrine Disorders: No HEENT History of HEENT Disorders: No Cancer History of Cancer: No Psychosocial History of Psychiatric Problem: No Suicide Risk Score: 0 Integumentary History of Skin or Integumenta: No Blood Transfusions History of Blood Disorders: No Family Medical History Significant Family History: No Pertinent Family Hx Physical Exam Vital Signs Vital Signs - First Documented 08/20/17 12:56 Temp 97.2 Pulse 85 Resp 20 B/P (MAP) 129/95 (106) Pulse Ox 100 O2 Delivery Non Rebreather O2 Flow Rate 12.00 Capillary Refill : Less Than 3 Seconds General Appearance: No Apparent Distress, WD/WN Eyes: Bilateral Eye Normal Inspection, Bilateral Eye PERRL, Bilateral Eye EOMI HEENT: PERRL/EOMI, TMs Normal, Normal ENT Inspection, Pharynx Normal Neck: Full Range of Motion, Normal Inspection Respiratory: Normal Breath Sounds, No Accessory Muscle Use, No Respiratory Distress Cardiovascular: Regular Rate, Rhythm, Normal Peripheral Pulses Gastrointestinal: Normal Bowel Sounds, Non Tender, Soft Extremity: Normal Capillary Refill, Normal Inspection Neurologic/Psychiatric: Alert, Oriented x3, No Motor/Sensory Deficits Skin: Normal Color, Warm/Dry Progress/Results/Core Measures Suspected Sepsis Recent Fever Within 48 Hours: No Infection Criteria Present: None New/Unexplained Altered Menta: No Sepsis Screen: No Definite Risk Sepsis Diagnosis: SIRS Temperature:97.2 Pulse: 85 Respiratory Rate: 20 Laboratory Tests 08/20/17 12:43: White Blood Count 9.9 Blood Pressure 129 /95 Mean: 106 Laboratory Tests 08/20/17 12:43: Creatinine 0.88, Platelet Count 230, Total Bilirubin 0.9 Results/Orders Lab Results Laboratory Tests Test 08/20/17 12:43 08/20/17 13:27 08/20/17 14:59 Range/Units White Blood Count 9.9 4.3-11.0 10^3/uL Red Blood Count 5.03 4.35-5.85 10^6/uL Hemoglobin 15.0 13.3-17.7 G/DL Hematocrit 45 40-54 % Mean Corpuscular Volume 89 80-99 FL Mean Corpuscular Hemoglobin 30 25-34 PG Mean Corpuscular Hemoglobin Concent 34 32-36 G/DL Red Cell Distribution Width 15.5 H 10.0-14.5 % Platelet Count 230 130-400 10^3/uL Mean Platelet Volume 9.6 7.4-10.4 FL Neutrophils (%) (Auto) 49 42-75 % Lymphocytes (%) (Auto) 41 12-44 % Monocytes (%) (Auto) 7 0-12 % Eosinophils (%) (Auto) 3 0-10 % Basophils (%) (Auto) 1 0-10 % Neutrophils # (Auto) 4.9 1.8-7.8 X 10^3 Lymphocytes # (Auto) 4.0 1.0-4.0 X 10^3 Monocytes # (Auto) 0.6 0.0-1.0 X 10^3 Eosinophils # (Auto) 0.3 0.0-0.3 10^3/uL Basophils # (Auto) 0.1 0.0-0.1 10^3/uL Carboxyhemoglobin 12.1 H 5.2 H 0.5-2.5 % Sodium Level 138 135-145 MMOL/L Potassium Level 4.6 3.6-5.0 MMOL/L Chloride Level 107 98-107 MMOL/L Carbon Dioxide Level 22 21-32 MMOL/L Anion Gap 9 5-14 MMOL/L Blood Urea Nitrogen 12 7-18 MG/DL Creatinine 0.88 0.60-1.30 MG/DL Estimat Glomerular Filtration Rate > 60 BUN/Creatinine Ratio 14 Glucose Level 75 70-105 MG/DL Calcium Level 9.2 8.5-10.1 MG/DL Total Bilirubin 0.9 0.1-1.0 MG/DL Aspartate Amino Transf (AST/SGOT) 19 5-34 U/L Alanine Aminotransferase (ALT/SGPT) 9 0-55 U/L Alkaline Phosphatase 102 40-136 U/L Troponin I < 0.30 <0.30 NG/ML Total Protein 7.5 6.4-8.2 GM/DL Albumin 4.3 3.2-4.5 GM/DL Blood Gas Puncture Site RT WRIST Blood Gas Patient Temperature 97.5 Arterial Blood pH 7.51 H 7.37-7.43 Arterial Blood Partial Pressure CO2 27 L 35-45 MMHG Arterial Blood Partial Pressure O2 263 H 79-93 MMHG Arterial Blood HCO3 22 L 23-27 MMOL/L Arterial Blood Total CO2 22.8 21.0-31.0 MMOL/L Arterial Blood Oxygen Saturation 100 94-100 % Arterial Blood Base Excess -0.9 -2.5-2.5 MMOL/L Titi Test YES-POS Blood Gas Ventilator Setting NO Blood Gas Inspired Oxygen 12 L My Orders Orders - JOSE PÉREZ APRN Carboxyhemoglobin (08/20/17 12:46) Cbc With Automated Diff (08/20/17 13:01) Troponin I (08/20/17 13:01) Ekg Tracing (08/20/17 13:01) Comprehensive Metabolic Panel (08/20/17 13:01) Chest 1 View, Ap/Pa Only (08/20/17 13:01) Arterial Blood Gas (08/20/17 13:29) Carboxyhemoglobin (08/20/17 14:38) Vital Signs/I&O Vital Sign - Last 12Hours 08/20/17 12:56 Temp 97.2 Pulse 85 Resp 20 B/P (MAP) 129/95 (106) Pulse Ox 100 O2 Delivery Non Rebreather O2 Flow Rate 12.00 Capillary Refill : Less Than 3 Seconds Blood Pressure Mean: 106 Departure Communication (Admissions) Progress Notes Upon arrival to ER he was applied to nasal cannula at 3 L. After receiving his elevated carboxyhemoglobin test we applied a nonrebreather. We'll repeat carboxyhemoglobin level at the 2 hour haresh. Add additional testing to include chest x-ray EKG troponin and arterial blood gas 1519- sleeping in bed easily awaken to verbal stimuli. Nonrebreather remains in place. His carboxyhemoglobin has reduced by greater than one half. He is a smoker of 2 cigars per day so his baseline oxyhemoglobin level is expected to be high. It's 3:15 now, we will continue the nonrebreather until 4 in the we will discharge to home. He states he has someone working on the leak at his house now and if it is not fixed he will stay in a hotel tonight. Impression Impression: Primary Impression: Carbon monoxide poisoning Disposition: HOME, SELF-CARE (Is really good eye) Condition: Improved Departure-Patient Inst. Decision time for Depature: 15:32 Referrals: GENE GOMES MD (PCP/Family) Primary Care Physician Patient Instructions: Carbon Monoxide Poisoning Add. Discharge Instructions: 1. If the carbon monoxide is not fixed in your house or if the carbon monoxide level according to the fire department is still elevated you should stay in a hotel again tonight. Return to ER for any concerns. Follow-up with your doctor later this week for recheck. All discharge instructions reviewed with patient and/or family. Voiced understanding. JOSE PÉREZ APRN Aug 20, 2017 13:10
[2017-08-20 13:19] LABS: ALANINE AMINOTRANSFERASE 9 U/L (0-55); ALBUMIN 4.3 GM/DL (3.2-4.5); ALKALINE PHOSPHATASE 102 U/L (40-136); BILIRUBIN,TOTAL 0.9 MG/DL (0.1-1.0); BUN/CREATININE RATIO 14; CALCIUM 9.2 MG/DL (8.5-10.1); CARBON DIOXIDE 22 MMOL/L (21-32); CHLORIDE 107 MMOL/L (98-107); CREATININE SERUM 0.88 MG/DL (0.60-1.30); GFR ESTIMATED > 60; GLUCOSE 75 MG/DL (70-105); POTASSIUM 4.6 MMOL/L (3.6-5.0); SODIUM 138 MMOL/L (135-145); TOTAL PROTEIN 7.5 GM/DL (6.4-8.2)
--- NOTE | 2017-08-20 13:28 | Diagnostic Imaging Report ---
INDICATION: Possible carbon monoxide exposure. TECHNIQUE: Single-view chest 1:14 p.m. CORRELATION STUDY: 08/27/2016. FINDINGS: Heart size is borderline. Vasculature is within normal limits. Lung carnes are overall symmetrically well inflated. No infiltrate. No suggestion for effusion. No pneumothorax. IMPRESSION: 1. Negative-appearing portable chest. Dictated by: Dictated on workstation # [id number]
[2017-08-20 13:38] LABS: ABG BASE EXCESS -0.9 MMOL/L (-2.5-2.5); ABG OXYGEN SATURATION 100 % (94-100); ABG PCO2 27 MMHG (35-45); ABG PH 7.51 (7.37-7.43); ABG PO2 263 MMHG (79-93); ABG TCO2 22.8 MMOL/L (21.0-31.0)
[2017-08-20 13:39] LABS: ALLENS TEST YES-POS; INSPIRED O2 12 L; PATIENT TEMP 97.5; VENTILATOR NO
[2017-08-20 15:54] VITALS: BP 138/97
== END 2017-08-20 15:54 | disposition home or self-care (01) ==
LOC: EDUNIT# 12:17 → ER 12:20
DX: R42 Dizziness and giddiness (principal); R51 Headache; R11.2 Nausea with vomiting, unspecified; R53.81 Other malaise; T58.14XA Toxic effect of carbon monoxide from utility gas, undetermined, initial encounter; F17.290 Nicotine dependence, other tobacco product, uncomplicated; Z87.19 Personal history of other diseases of the digestive system; Y92.59 Other trade areas as the place of occurrence of the external cause
CPT/HCPCS: 36415; 71045; 80053; 82375; 82805; 84484; 85025; 93005

== ENCOUNTER 2019-12-21 07:24 | Emergency (ER) | payer BC, OTHER ==
[~2019-12-21] VITALS: Ht 197 cm; Wt 91.0 kg
[2019-12-21] MEDS ORDERED: ONDANSETRON 4 MG/2 ML (SDV) Z0FRAN ONE (07:35)
[2019-12-21] MEDS ORDERED: fentaNYL INJECTION 100 MCG/2 ML AMP ONE (07:35)
[2019-12-21] MEDS ORDERED: FAMOTIDINE 20MG/2ML IV (PEPCID) IV STA (07:40)
[2019-12-21] MEDS ORDERED: LACTATED RINGERS 1,000 ML IV STA (07:40)
[2019-12-21] MEDS ORDERED: PANTOPRAZOLE 40 MG (PROTONIX) VIAL IV ONE (07:45)
--- NOTE | 2019-12-21 07:53 | ED Abdominal Pain ---
General Stated Complaint: VOMITING BLOOD; ABD PAIN Source of Information: Patient Exam Limitations: No Limitations History of Present Illness Date Seen by Provider: Dec 21, 2019 Time Seen by Provider: 07:35 Initial Comments Here with report of epigastric abdominal pain, vomiting, dry heaves, diarrhea and chills. States diarrhea started yesterday afternoon and vomiting started this morning. Reports that he had some blood at the end of a dry heave that was little blobs of blood. That has not persisted. Denies blood in his stool. Does have history of ulcer in the past. Denies fevers, upper respiratory symptoms or contact with COVID-19 to his knowledge. Reports that he stays home except for going to the store. Denies sick contacts. Does admit to marijuana 3 days weekly. Timing/Duration: 12-24 Hours Severity/Quality: Moderate, Aching Location: Epigastric, Generalized Abdomen Radiation: No Radiation Activities at Onset: None Modifying Factors: Improves With Vomiting Associated Symptoms: No Back Pain, No Chest Pain; Nausea/Vomiting; No Shortness of Air, No Weakness Allergies and Home Medications Allergies Coded Allergies: No Known Drug Allergies (Unverified , 08/27/16) Home Medications No Active Prescriptions or Reported Meds Patient Home Medication List Home Medication List Reviewed: Yes Review of Systems Review of Systems Constitutional: see HPI, chills; No fever EENTM: No Symptoms Reported Respiratory: Denies Cough, Denies Shortness of Air Cardiovascular: Denies Chest Pain, Denies Edema Gastrointestinal: Abdominal Pain, Diarrhea, Nausea, Vomiting Genitourinary: No Symptoms Reported Musculoskeletal: no symptoms reported Skin: no symptoms reported Psychiatric/Neurological: No Symptoms Reported All Other Systems Reviewed Negative Unless Noted: Yes Past Fasntmm-Pwdgzz-Wxrsco Hx Past Med/Social Hx: Reviewed Nursing Past Med/Soc Hx Patient Social History Recreational Drug Use: Yes (THC) Smoking Status: Current Everyday Smoker Type Used: Cigars Recent Hopitalizations: No Past Medical History Surgeries: Yes (EGD) Respiratory: No Cardiac: No Neurological: No Reproductive Disorders: No Genitourinary: No Gastrointestinal: Yes Pancreatitis, Esophagitis Musculoskeletal: No Endocrine: No HEENT: No Cancer: No Psychosocial: No Integumentary: No Blood Disorders: No Family Medical History Reviewed Nursing Family Hx No Pertinent Family Hx Physical Exam Vital Signs Vital Signs - First Documented 12/21/19 07:25 Temp 36.5 Pulse 73 Resp 18 B/P (MAP) 164/97 (119) Pulse Ox 100 Capillary Refill : Height/Weight/BMI Height: 6'6.00" Weight: 190lbs. oz. 86.895498mw; BMI Method:Stated General Appearance: WD/WN, no apparent distress HEENT: PERRL/EOMI, pharynx normal Neck: full range of motion, supple Respiratory: lungs clear, normal breath sounds Cardiovascular: regular rate, rhythm, no murmur Peripheral Pulses: 2+ Dorsalis Pedis (R), 2+ Left Dors-Pedis (L), 2+ Radial Pulses (R), 2+ Radial Pulses (L) Gastrointestinal: normal bowel sounds, soft, no organomegaly, tenderness (epigastric) Extremities: non-tender, normal inspection Back: normal inspection, no CVA tenderness, no vertebral tenderness Neurologic/Psychiatric: alert, oriented x 3 Skin: normal color, warm/dry Progress/Results/Core Measures Results/Orders Lab Results Laboratory Tests Test 12/21/19 07:30 Range/Units White Blood Count 15.9 H 4.3-11.0 10^3/uL Red Blood Count 5.20 4.35-5.85 10^6/uL Hemoglobin 15.5 13.3-17.7 G/DL Hematocrit 44 40-54 % Mean Corpuscular Volume 85 80-99 FL Mean Corpuscular Hemoglobin 30 25-34 PG Mean Corpuscular Hemoglobin Concent 35 32-36 G/DL Red Cell Distribution Width 14.8 H 10.0-14.5 % Platelet Count 233 130-400 10^3/uL Mean Platelet Volume 9.8 7.4-10.4 FL Neutrophils (%) (Auto) 74 42-75 % Lymphocytes (%) (Auto) 21 12-44 % Monocytes (%) (Auto) 5 0-12 % Eosinophils (%) (Auto) 1 0-10 % Basophils (%) (Auto) 0 0-10 % Neutrophils # (Auto) 11.8 H 1.8-7.8 X 10^3 Lymphocytes # (Auto) 3.3 1.0-4.0 X 10^3 Monocytes # (Auto) 0.7 0.0-1.0 X 10^3 Eosinophils # (Auto) 0.1 0.0-0.3 10^3/uL Basophils # (Auto) 0.0 0.0-0.1 10^3/uL Neutrophils % (Manual) 72 % Lymphocytes % (Manual) 24 % Monocytes % (Manual) 4 % Eosinophils % (Manual) 0 % Basophils % (Manual) 0 % Blood Morphology Comment NORMAL Sodium Level 141 135-145 MMOL/L Potassium Level 3.7 3.6-5.0 MMOL/L Chloride Level 104 98-107 MMOL/L Carbon Dioxide Level 25 21-32 MMOL/L Anion Gap 12 5-14 MMOL/L Blood Urea Nitrogen 13 7-18 MG/DL Creatinine 1.03 0.60-1.30 MG/DL Estimat Glomerular Filtration Rate > 60 BUN/Creatinine Ratio 13 Glucose Level 120 H 70-105 MG/DL Calcium Level 9.5 8.5-10.1 MG/DL Corrected Calcium 9.4 8.5-10.1 MG/DL Magnesium Level 2.0 1.6-2.4 MG/DL Total Bilirubin 0.4 0.1-1.0 MG/DL Aspartate Amino Transf (AST/SGOT) 17 5-34 U/L Alanine Aminotransferase (ALT/SGPT) 15 0-55 U/L Alkaline Phosphatase 106 40-136 U/L C-Reactive Protein High Sensitivity 0.41 0.00-0.50 MG/DL Total Protein 7.7 6.4-8.2 GM/DL Albumin 4.1 3.2-4.5 GM/DL My Orders Orders - CATHLEEN BERRY MD Fentanyl Injection (Sublimaze Injection (12/21/19 07:35) Ondansetron Injection (Zofran Injectio (12/21/19 07:35) Lactated Ringers (Lr 1000 Ml Iv Solution (12/21/19 07:40) Famotidine Injection (Pepcid Injection) (12/21/19 07:40) Ed Iv/Invasive Line Start (12/21/19 07:40) Cbc With Automated Diff (12/21/19 07:40) Comprehensive Metabolic Panel (12/21/19 07:40) Hs C Reactive Protein (12/21/19 07:40) Magnesium (12/21/19 07:40) Pantoprazole Injection (Protonix Injecti (12/21/19 07:45) Ekg Tracing (12/21/19 07:41) Manual Differential (12/21/19 07:30) Fentanyl Injection (Sublimaze Injection (12/21/19 08:13) Haloperidol Injection (Haldol Injectio (12/21/19 08:15) Medications Given in ED Current Medications Medications Dose Ordered Sig/Ayaka Route Start Time Stop Time Status Last Admin Dose Admin Fentanyl Citrate 100 mcg STK-MED ONCE .ROUTE 12/21/19 07:35 12/21/19 07:38 DC 12/21/19 07:43 50 MCG Haloperidol Lactate 5 mg ONCE ONCE IV 12/21/19 08:15 12/21/19 08:16 DC 12/21/19 08:25 5 MG Ondansetron HCl 4 mg STK-MED ONCE .ROUTE 12/21/19 07:35 12/21/19 07:38 DC 12/21/19 07:43 4 MG Pantoprazole 40 mg ONCE ONCE IV 12/21/19 07:45 12/21/19 07:46 DC 12/21/19 07:45 40 MG Vital Signs/I&O 12/21/19 07:25 Temp 36.5 Pulse 73 Resp 18 B/P (MAP) 164/97 (119) Pulse Ox 100 Progress Progress Note : Progress Note Seen and evaluated. IV, labs, LR 1 L bolus, Zofran 4 mg IV, fentanyl 50 g IV, Pepcid 20 mg IV and Protonix 40 mg IV ordered. Monitor patient. EKG ordered to evaluate QT as there is consideration for Haldol if this is related to THC. 0815: Patient still with pain. Haldol 5 mg IV and fentanyl 50 g IV ordered. Monitor patient. 0950: Patient is fully relieved with respect to pain and feels much better. He is ready to go home. We did discuss THC use and the side effects causing cyclic vomiting. Patient verbalize understanding and appreciative of that information. I have instructed him to follow-up with Dr. Putnam for recheck and further evaluation and possible referral to a surgeon for endoscopy to evaluate for ulcers if needed. He states he would and I will send a copy of the chart to Dr. Putnam. Discharged home with return precautions. Verbalize understanding instructions and agreement with plan. Initial ECG Impression Date: Dec 21, 2019 Initial ECG Impression Time: 07:40 Initial ECG Rate: 57 Initial ECG Rhythm: Normal Sinus Comment Sinus rhythm with leftward axis. No evidence of ST elevation VT. Similar to previous of 08/20/17. Interpreted by me. 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 Decision time for Depature: 09:53 Referrals: GENE PUTNAM MD (PCP/Family) Primary Care Physician Patient Instructions: Severe Abdominal Pain, Adult (DC), Nausea and Vomiting, Adult, Marijuana Use and Addiction (DC) Add. Discharge Instructions: Follow-up with your doctor for recheck and further evaluation in a few days. Discussed with her about possible referral to a surgeon for consideration of upper endoscopy (scope) to evaluate ulcers. You should stop marijuana use as this is likely causing the vomiting syndrome. Clear liquid diet or light diet for the next 24 hours and then advance as tolerated. Return for worse pain, fever, vomiting, weakness, breathing problems, blood in your vomit or stool or other concerns as needed. You should take Pepcid or the generic famotidine 20 mg twice daily for the next 7 days and then daily thereafter as needed to reduce stomach upset. You may get this [id number]. Scripts No Active Prescriptions or Reported Meds Copy Copies To 1: GENE PUTNAM MD, TIMOTHY D MD Dec 21, 2019 07:53
[2019-12-21 07:57] LABS: BASOPHILS % (AUTO) 0 % (0-10); EOSINOPHILS # (AUTO) 0.1 10^3/uL (0.0-0.3); EOSINOPHILS % (AUTO) 1 % (0-10); HEMATOCRIT 44 % (40-54); HEMOGLOBIN 15.5 G/DL (13.3-17.7); LYMPHOCYTES # (AUTO) 3.3 X 10^3 (1.0-4.0); LYMPHOCYTES % (AUTO) 21 % (12-44); MEAN CORPUSCULAR HEMOGLOBIN 30 PG (25-34); MEAN CORPUSCULAR HGB CONC 35 G/DL (32-36); MEAN CORPUSCULAR VOLUME 85 FL (80-99); MEAN PLATELET VOLUME 9.8 FL (7.4-10.4); MONOCYTES # (AUTO) 0.7 X 10^3 (0.0-1.0); MONOCYTES % (AUTO) 5 % (0-12); NEUTROPHILS # (AUTO) 11.8 X 10^3 (1.8-7.8); NEUTROPHILS % (AUTO) 74 % (42-75); PLATELET COUNT 233 10^3/uL (130-400); RED CELL DISTRIBUTION WIDTH 14.8 % (10.0-14.5); WHITE BLOOD COUNT 15.9 10^3/uL (4.3-11.0)
[2019-12-21 08:09] LABS: ALANINE AMINOTRANSFERASE 15 U/L (0-55); ALBUMIN 4.1 GM/DL (3.2-4.5); ALKALINE PHOSPHATASE 106 U/L (40-136); BILIRUBIN,TOTAL 0.4 MG/DL (0.1-1.0); BUN/CREATININE RATIO 13; CALCIUM 9.5 MG/DL (8.5-10.1); CARBON DIOXIDE 25 MMOL/L (21-32); CHLORIDE 104 MMOL/L (98-107); CREATININE SERUM 1.03 MG/DL (0.60-1.30); GFR ESTIMATED > 60; GLUCOSE 120 MG/DL (70-105); POTASSIUM 3.7 MMOL/L (3.6-5.0); SODIUM 141 MMOL/L (135-145); TOTAL PROTEIN 7.7 GM/DL (6.4-8.2)
[2019-12-21] MEDS ORDERED: fentaNYL INJECTION 100 MCG/2 ML AMP IVP STA (08:13)
[2019-12-21] MEDS ORDERED: HALOPERIDOL 5 MG/ML (HALDOL) VIAL IV ONE (08:15)
--- OUTSIDE RECORDS SUMMARY | 2019-12-21 08:34 | XMS REPORT | Continuity of Care Document ---
Author Organization Unknown Address Unknown Phone Unavailable Allergies Active Description Code Type Severity Reaction Onset Reported/Identified Relationship to Patient Clinical Status Yes No Known Drug Allergies [id number] Drug Allergy Unknown N/A 08/27/2016 Medications There is no data. 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 08/08/2016 JOSE BYRD COLOR WEIGHER Ot R4 2 DIZZINESS AND GIDDINESS 08/08/2016 JOSE BYRD COLOR WEIGHER Ot R5 1 HEADACHE 08/08/2016 JOSE BYRD APRN Ot R07.9 CHEST PAIN, UNSPECIFIED 08/08/2016 JOSE BYRD COLOR WEIGHER Ot R4 2 DIZZINESS AND GIDDINESS 08/21/2016 JOSE BYRD COLOR WEIGHER Ot M50.323 OTHER CERVICAL DISC DEGENERATION AT C6-C 08/21/2016 JOSE BYRD COLOR WEIGHER Ot R4 2 DIZZINESS AND GIDDINESS 08/21/2016 JOSE BYRD COLOR WEIGHER Ot R5 1 HEADACHE 08/21/2016 JOSE BYRD COLOR WEIGHER Ot R07.9 CHEST PAIN, UNSPECIFIED 08/21/2016 JOSE BYRD COLOR WEIGHER Ot R4 2 DIZZINESS AND GIDDINESS 08/27/2016 JOSE MCCORD SHARMIN K Ot F17.210 NICOTINE DEPENDENCE, CIGARETTES, UNCOMPL 08/27/2016 JOSE MCCORD SHARMIN K Ot K20.9 ESOPHAGITIS, UNSPECIFIED 08/27/2016 JOSEKirk MCCORD SHARMIN K Ot R10.10 UPPER ABDOMINAL PAIN, UNSPECIFIED 08/27/2016 JOSE MCCORD SHARMIN K Ot R11.2 NAUSEA WITH VOMITING, UNSPECIFIED 08/27/2016 JOSE MCCORD SHARMIN K Ot Z87.19 PERSONAL HISTORY OF OTHER DISEASES OF TH 12/12/2016 CATHLEEN BERRY MD Ot F17.290 NICOTINE DEPENDENCE, OTHER TOBACCO PRODU 12/12/2016 CATHLEEN BERRY MD Ot N28.9 DISORDER OF KIDNEY AND URETER, UNSPECIFI 12/12/2016 CATHLEEN BERRY MD Ot R10.9 UNSPECIFIED ABDOMINAL PAIN 12/12/2016 CATHLEEN BERRY MD Ot Z87.19 PERSONAL HISTORY OF OTHER DISEASES OF 12/13/2016 CATHLEEN BERRY MD Ot F17.290 NICOTINE DEPENDENCE, OTHER TOBACCO PRODU 12/13/2016 CATHLEEN BERRY MD Ot N28.9 DISORDER OF KIDNEY AND URETER, UNSPECIFI 12/13/2016 CATHLEEN BERRY MD Ot R10.9 UNSPECIFIED ABDOMINAL PAIN 12/13/2016 CATHLEEN BERRY MD Ot Z87.19 PERSONAL HISTORY OF OTHER DISEASES OF 08/20/2017 JOSE PÉREZ APRN Ot F17.290 NICOTINE DEPENDENCE, OTHER TOBACCO PRODU 08/20/2017 JOSE PÉREZ APRN Ot R11 .2 NAUSEA WITH VOMITING, UNSPECIFIED 08/20/2017 JOSE PÉREZ APRN Ot R42 DIZZINESS AND GIDDINESS 08/20/2017 JOSE PÉREZ APRN Ot R51 HEADACHE 08/20/2017 JOSE PÉREZ APRN Ot R53.81 OTHER MALAISE 08/20/2017 JOSE PÉREZ APRN Ot 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 08/20/2017 JOSE PÉREZ APRN Ot Y92.[address] 08/20/2017 JOSE PÉREZ APRN Ot Z87.19 PERSONAL HISTORY OF OTHER DISEASES OF 08/22/2017 JOSE PÉREZ APRN Ot F17.290 NICOTINE DEPENDENCE, OTHER TOBACCO PRODU 08/22/2017 JOSE PÉREZ APRN Ot R11 .2 NAUSEA WITH VOMITING, UNSPECIFIED 08/22/2017 JOSE PÉREZ APRN Ot R42 DIZZINESS AND GIDDINESS 08/22/2017 JOSE PÉREZ APRN Ot R51 HEADACHE 08/22/2017 JOSE PÉREZ APRN Ot R53.81 OTHER MALAISE 08/22/2017 JOSE PÉREZ APRN Ot 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 Results Test Result Range Automated blood complete blood count ([facility]) panel - 08/06/16 11:27 Blood leukocytes automated count (number/volume) 9.5 10*3/uL 4.3-11.0 Blood erythrocytes automated count (number/volume) 5.43 10*6/uL 4.35-5.85 Venous blood hemoglobin measurement (mass/volume) 16.0 g/dL 13.3-17.7 Blood hematocrit (volume fraction) 46 % 40-54 Automated erythrocyte mean corpuscular volume 86 [ foz_us] 80-99 Automated erythrocyte mean corpuscular h emoglobin (mass per erythrocyte) 30 pg 25-34 Automated erythrocyte mean corpuscular h emoglobin concentration measurement (mass/volume) 35 g/dL 32-36 Automated erythrocyte distribution width ratio 14. 7 % 10.0- 14.5 Automated blood platelet count (count/volume) 227 10*3/uL 130-400 Automated blood platelet mean volume measurement 9.4 [foz_us] 7.4-10.4 Comprehensive metabolic panel - 08/06/16 11:27 Serum or plasma sodium measurement (moles/volume) 141 mmol/L 135-145 Serum or plasma potassium measurement (moles/volume) 4.0 mmol/L 3.6-5.0 Serum or plasma chloride measurement (moles/volume) 107 mmol/L 98-107 Carbon dioxide 24 mmol/L 21-32 Serum or plasma anion gap determination (moles/volume) 10 mmol/L 5-14 Serum or plasma urea nitrogen measurement (mass/volume ) 14 mg/dL 7-18 Serum or plasma creatinine measurement (mass/volume) 1.14 mg/dL 0.60-1.30 Serum or plasma urea nitrogen/creatinine mass ratio 12 NRG Serum or plasma creatinine measurement w ith calculation of estimated glomerular filtration rate > NRG Serum or plasma glucose measurement (mass/volume) 74 mg/dL 70-105 Serum or plasma calcium measurement (mass/volume) 9.2 mg/dL 8.5-10.1 Serum or plasma total bilirubin measurement (mass/volu me) 0.6 mg/dL 0.1-1.0 Serum or plasma alkaline phosphatase hortencia surement (enzymatic activity/volume) 96 U/L 40-136 Serum or plasma aspartate aminotransfera se measurement (enzymatic activity/volume) 15 U/L 5-34 Serum or plasma alanine aminotransferase measurement (enzymatic activity/volume) 13 U/L 0-55 Serum or plasma protein measurement (mass/volume) 7.5 g/dL 6.4-8.2 Serum or plasma albumin measurement (mass/volume) 4.1 g/dL 3.2-4.5 THYROID STIMULATING HORMONE - 08/06/16 1 1:27 THYROID STIMULATING HORMONE 0.87 u[iU]/mL 0.35-4.94 Serum or plasma thyroxine (T4) free dontae urement (mass/volume) - 08/06/16 11:27 Serum or plasma thyroxine (T4) free measurement (mass/ volume) 0.99 ng/dL 0.70-1.48 Complete blood count (CBC) with automate d white blood cell (WBC) differential - 08/27/16 18:08 Blood leukocytes automated count (number/volume) 16.7 10*3/uL 4.3-11.0 Blood erythrocytes automated count (number/volume) 4.93 10*6/uL 4.35-5.85 Venous blood hemoglobin measurement (mass/volume) 14.6 g/dL 13.3-17.7 Blood hematocrit (volume fraction) 41 % 40-54 Automated erythrocyte mean corpuscular volume 84 [ foz_us] 80-99 Automated erythrocyte mean corpuscular h emoglobin (mass per erythrocyte) 30 pg 25-34 Automated erythrocyte mean corpuscular h emoglobin concentration measurement (mass/volume) 35 g/dL 32-36 Automated erythrocyte distribution width ratio 14. 4 % 10.0- 14.5 Automated blood platelet count (count/volume) 238 10*3/uL 130-400 Automated blood platelet mean volume measurement 9.4 [foz_us] 7.4-10.4 Automated blood neutrophils/100 leukocytes 58 % 42-75 Automated blood lymphocytes/100 leukocytes 36 % 12-44 Blood monocytes/100 leukocytes 6 % 0-12 Automated blood eosinophils/100 leukocytes 1 % 0-10 Automated blood basophils/100 leukocytes 0 % 0-10 Blood neutrophils automated count (number/volume) 9.6 10*3 1.8-7.8 Blood lymphocytes automated count (number/volume) 5.9 10*3 1.0-4.0 Blood monocytes automated count (number/volume) 1. 0 10*3 0.0-1.0 Automated eosinophil count 0.1 10*3/uL 0 .0-0.3 Automated blood basophil count (count/volume) 0.0 10*3/uL 0.0-0.1 PT panel in platelet poor plasma by coag ulation assay - 08/27/16 18:08 Prothrombin time (PT) in platelet poor plasma by coagu lation assay 13.4 s 12.2-14.7 INR in platelet poor plasma or blood by coagulation as say 1.1 0.8-1.4 Activated partial thromboplastin time (a PTT) in platelet poor plasma bycoagulation assay - 08/27/16 18:08 Activated partial thromboplastin time (a PTT) in platelet poor plasma bycoagulation assay 31 s 24-35 Blood manual differential performed dete ction - 08/27/16 18:08 Blood monocytes/100 leukocytes 2 % NRG Manual blood segmented neutrophils/100 leukocytes 47 % NRG Blood band neutrophils/100 leukocytes 0 % NRG Manual blood lymphocytes/100 leukocytes 51 % NRG Manual eosinophils/100 leukocytes in nose 0 % NRG Manual blood basophils/100 leukocytes 0 % NRG Blood erythrocyte morphology finding identification NORMAL NRG Comprehensive metabolic panel - 08/27/16 18:08 Serum or plasma sodium measurement (moles/volume) 141 mmol/L 135-145 Serum or plasma potassium measurement (moles/volume) 3.7 mmol/L 3.6-5.0 Serum or plasma chloride measurement (moles/volume) 107 mmol/L 98-107 Carbon dioxide 20 mmol/L 21-32 Serum or plasma anion gap determination (moles/volume) 14 mmol/L 5-14 Serum or plasma urea nitrogen measurement (mass/volume ) 16 mg/dL 7-18 Serum or plasma creatinine measurement (mass/volume) 0.98 mg/dL 0.60-1.30 Serum or plasma urea nitrogen/creatinine mass ratio 16 NRG Serum or plasma creatinine measurement w ith calculation of estimated glomerular filtration rate > NRG Serum or plasma glucose measurement (mass/volume) 90 mg/dL 70-105 Serum or plasma calcium measurement (mass/volume) 9.2 mg/dL 8.5-10.1 Serum or plasma total bilirubin measurement (mass/volu me) 0.8 mg/dL 0.1-1.0 Serum or plasma alkaline phosphatase hortencia surement (enzymatic activity/volume) 89 U/L 40-136 Serum or plasma aspartate aminotransfera se measurement (enzymatic activity/volume) 27 U/L 5-34 Serum or plasma alanine aminotransferase measurement (enzymatic activity/volume) 16 U/L 0-55 Serum or plasma protein measurement (mass/volume) 7.2 g/dL 6.4-8.2 Serum or plasma albumin measurement (mass/volume) 4.1 g/dL 3.2-4.5 Magnesium - 08/27/16 18:08 Magnesium 1.8 mg/dL 1.8-2.4 Serum or plasma amylase measurement (enz ymatic activity/volume) - 08/27/16 18:08 Serum or plasma amylase measurement (enzymatic activit y/volume) 160 U/L 25-125 Lipase - 08/27/16 18:08 Lipase 166 U/L 8-78 Serum or plasma ethanol measurement (mas s/volume) - 08/27/16 18:08 Serum or plasma ethanol measurement (mass/volume) < mg/dL <10 Complete urinalysis with reflex to cultu re - 08/27/16 20:46 Urine color determination YELLOW NRG Urine clarity determination CLEAR NR G Urine pH measurement by test strip 8 5-9 Specific gravity of urine by test strip 1.010 1.016-1.022 Urine protein assay by test strip, semi-quantitative NEGATIVE NEGATIVE Urine glucose detection by automated test strip NE GATIVE NEGATIVE Erythrocytes detection in urine sediment by light micr oscopy NEGATIVE NEGATIVE Urine ketones detection by automated test strip 3+ NEGATIVE Urine nitrite detection by test strip NEGATIVE NEGATIVE Urine total bilirubin detection by test strip NEGA TIVE NEGATIVE Urine urobilinogen measurement by automated test strip (mass/volume) NORMAL NORMAL Urine leukocyte esterase detection by dipstick NEG ATIVE NEGATIVE Automated urine sediment erythrocyte cou nt by microscopy (number/high power field) NONE NRG Automated urine sediment leukocyte count by microscopy (number/high power field) RARE NRG Bacteria detection in urine sediment by light microsco py NEGATIVE NRG Crystals detection in urine sediment by light microsco py NONE NRG Casts detection in urine sediment by light microscopy NONE NRG Mucus detection in urine sediment by light microscopy NEGATIVE NRG Complete urinalysis with reflex to culture NO NRG Urine drug screening test - 08/27/16 20: 46 Urine phencyclidine detection by screening method NEGATIVE NEGATIVE Urine benzodiazepines detection by screening method NEGATIVE NEGATIVE Urine cocaine detection NEGATIVE NEGATI VE Urine amphetamines detection by screening method N EGATIVE NEGATIVE Urine methamphetamine detection by screening method NEGATIVE NEGATIVE Urine cannabinoids detection by screening method P OSITIVE NEGATIVE Urine opiates detection by screening method NEGATI VE NEGATIVE Urine barbiturates detection NEGATIVE N EGATIVE Screening urine tricyclic antidepressants detection NEGATIVE NEGATIVE Urine methadone detection by screening method NEGA TIVE NEGATIVE Urine oxycodone detection NEGATIVE NEGA TIVE Urine propoxyphene detection NEGATIVE N EGATIVE Complete blood count (CBC) with automate d white blood cell (WBC) differential - 12/11/16 21:56 Blood leukocytes automated count (number/volume) 20.5 10*3/uL 4.3-11.0 Blood erythrocytes automated count (number/volume) 5.53 10*6/uL 4.35-5.85 Venous blood hemoglobin measurement (mass/volume) 16.0 g/dL 13.3-17.7 Blood hematocrit (volume fraction) 46 % 40-54 Automated erythrocyte mean corpuscular volume 83 [ foz_us] 80-99 Automated erythrocyte mean corpuscular h emoglobin (mass per erythrocyte) 29 pg 25-34 Automated erythrocyte mean corpuscular h emoglobin concentration measurement (mass/volume) 35 g/dL 32-36 Automated erythrocyte distribution width ratio 14. 6 % 10.0- 14.5 Automated blood platelet count (count/volume) 237 10*3/uL 130-400 Automated blood platelet mean volume measurement 9.7 [foz_us] 7.4-10.4 Automated blood neutrophils/100 leukocytes 76 % 42-75 Automated blood lymphocytes/100 leukocytes 18 % 12-44 Blood monocytes/100 leukocytes 5 % 0-12 Automated blood eosinophils/100 leukocytes 0 % 0-10 Automated blood basophils/100 leukocytes 0 % 0-10 Blood neutrophils automated count (number/volume) 15.5 10*3 1.8-7.8 Blood lymphocytes automated count (number/volume) 3.8 10*3 1.0-4.0 Blood monocytes automated count (number/volume) 1. 1 10*3 0.0-1.0 Automated eosinophil count 0.0 10*3/uL 0 .0-0.3 Automated blood basophil count (count/volume) 0.1 10*3/uL 0.0-0.1 Blood manual differential performed dete ction - 12/11/16 21:56 Blood monocytes/100 leukocytes 1 % NRG Manual blood segmented neutrophils/100 leukocytes 77 % NRG Blood band neutrophils/100 leukocytes 1 % NRG Manual blood lymphocytes/100 leukocytes 21 % NRG Manual eosinophils/100 leukocytes in nose 0 % NRG Manual blood basophils/100 leukocytes 0 % NRG Blood erythrocyte morphology finding identification NORMAL NRG Comprehensive metabolic panel - 12/11/16 21:56 Serum or plasma sodium measurement (moles/volume) 138 mmol/L 135-145 Serum or plasma potassium measurement (moles/volume) 4.0 mmol/L 3.6-5.0 Serum or plasma chloride measurement (moles/volume) 104 mmol/L 98-107 Carbon dioxide 15 mmol/L 21-32 Serum or plasma anion gap determination (moles/volume) 19 mmol/L 5-14 Serum or plasma urea nitrogen measurement (mass/volume ) 23 mg/dL 7-18 Serum or plasma creatinine measurement (mass/volume) 1.98 mg/dL 0.60-1.30 Serum or plasma urea nitrogen/creatinine mass ratio 12 NRG Serum or plasma creatinine measurement w ith calculation of estimated glomerular filtration rate 45 NRG Serum or plasma glucose measurement (mass/volume) 126 mg/dL 70-105 Serum or plasma calcium measurement (mass/volume) 10.3 mg/dL 8.5-10.1 Serum or plasma total bilirubin measurement (mass/volu me) 1.3 mg/dL 0.1-1.0 Serum or plasma alkaline phosphatase hortencia surement (enzymatic activity/volume) 101 U/L 40-136 Serum or plasma aspartate aminotransfera se measurement (enzymatic activity/volume) 20 U/L 5-34 Serum or plasma alanine aminotransferase measurement (enzymatic activity/volume) 17 U/L 0-55 Serum or plasma protein measurement (mass/volume) 8.2 g/dL 6.4-8.2 Serum or plasma albumin measurement (mass/volume) 4.6 g/dL 3.2-4.5 Magnesium - 12/11/16 21:56 Magnesium 2.1 mg/dL 1.8-2.4 Serum or plasma amylase measurement (enz ymatic activity/volume) - 12/11/16 21:56 Serum or plasma amylase measurement (enzymatic activit y/volume) 59 U/L 25-125 Lipase - 12/11/16 21:56 Lipase 10 U/L 8-78 Serum or plasma salicylates measurement (mass/volume) - 12/11/16 21:56 Serum or plasma salicylates measurement (mass/volume) < mg/dL 5.0-20.0 Serum or plasma ethanol measurement (mas s/volume) - 12/11/16 21:56 Serum or plasma ethanol measurement (mass/volume) < mg/dL <10 Serum or plasma creatine kinase measurem ent (enzymatic activity/volume) - 12/11/16 21:56 Serum or plasma creatine kinase measurem ent (enzymatic activity/volume) 325 U/L 30-200 Urine drug screening test - 12/11/16 23: 30 Urine phencyclidine detection by screening method NEGATIVE NEGATIVE Urine benzodiazepines detection by screening method NEGATIVE NEGATIVE Urine cocaine detection NEGATIVE NEGATI VE Urine amphetamines detection by screening method N EGATIVE NEGATIVE Urine methamphetamine detection by screening method NEGATIVE NEGATIVE Urine cannabinoids detection by screening method P OSITIVE NEGATIVE Urine opiates detection by screening method NEGATI VE NEGATIVE Urine barbiturates detection NEGATIVE N EGATIVE Screening urine tricyclic antidepressants detection NEGATIVE NEGATIVE Urine methadone detection by screening method NEGA TIVE NEGATIVE Urine oxycodone detection NEGATIVE NEGA TIVE Urine propoxyphene detection NEGATIVE N EGATIVE Complete urinalysis with reflex to cultu re - 12/11/16 23:30 Urine color determination YELLOW NRG Urine clarity determination SLIGHTLY CLOUDY NRG Urine pH measurement by test strip 5 5-9 Specific gravity of urine by test strip 1.025 1.016-1.022 Urine protein assay by test strip, semi-quantitative 3+ NEGATIVE Urine glucose detection by automated test strip NE GATIVE NEGATIVE Erythrocytes detection in urine sediment by light micr oscopy NEGATIVE NEGATIVE Urine ketones detection by automated test strip 3+ NEGATIVE Urine nitrite detection by test strip NEGATIVE NEGATIVE Urine total bilirubin detection by test strip 1+ NEGATIVE Urine urobilinogen measurement by automated test strip (mass/volume) 1 mg/dL NORMAL Urine leukocyte esterase detection by dipstick 1+ NEGATIVE Automated urine sediment erythrocyte cou nt by microscopy (number/high power field) NONE NRG Automated urine sediment leukocyte count by microscopy (number/high power field) [HPF] NRG Bacteria detection in urine sediment by light microsco py MODERATE NRG Squamous epithelial cells detection in u rine sediment by light microscopy RARE NRG Crystals detection in urine sediment by light microsco py PRESENT NRG Casts detection in urine sediment by light microscopy PRESENT NRG Mucus detection in urine sediment by light microscopy MODERATE NRG Complete urinalysis with reflex to culture YES NRG Hyaline casts detection in urine sediment by light edgard roscopy 25-50 NRG Calcium oxalate crystals detection in ur ine sediment by light microscopy FEW NRG Bacterial urine culture - 12/11/16 23:30 URINE CULTURE RESULTS <10,000/ML NRG Blood carboxyhemoglobin/total hemoglobin - 08/20/17 12:43 Blood carboxyhemoglobin/total hemoglobin 12.1 % 0.5-2.5 Complete blood count (CBC) with automate d white blood cell (WBC) differential - 08/20/17 12:43 Blood leukocytes automated count (number/volume) 9.9 10*3/uL 4.3-11.0 Blood erythrocytes automated count (number/volume) 5.03 10*6/uL 4.35-5.85 Venous blood hemoglobin measurement (mass/volume) 15.0 g/dL 13.3-17.7 Blood hematocrit (volume fraction) 45 % 40-54 Automated erythrocyte mean corpuscular volume 89 [ foz_us] 80-99 Automated erythrocyte mean corpuscular h emoglobin (mass per erythrocyte) 30 pg 25-34 Automated erythrocyte mean corpuscular h emoglobin concentration measurement (mass/volume) 34 g/dL 32-36 Automated erythrocyte distribution width ratio 15. 5 % 10.0- 14.5 Automated blood platelet count (count/volume) 230 10*3/uL 130-400 Automated blood platelet mean volume measurement 9.6 [foz_us] 7.4-10.4 Automated blood neutrophils/100 leukocytes 49 % 42-75 Automated blood lymphocytes/100 leukocytes 41 % 12-44 Blood monocytes/100 leukocytes 7 % 0-12 Automated blood eosinophils/100 leukocytes 3 % 0-10 Automated blood basophils/100 leukocytes 1 % 0-10 Blood neutrophils automated count (number/volume) 4.9 10*3 1.8-7.8 Blood lymphocytes automated count (number/volume) 4.0 10*3 1.0-4.0 Blood monocytes automated count (number/volume) 0. 6 10*3 0.0-1.0 Automated eosinophil count 0.3 10*3/uL 0 .0-0.3 Automated blood basophil count (count/volume) 0.1 10*3/uL 0.0-0.1 Comprehensive metabolic panel - 08/20/17 12:43 Serum or plasma sodium measurement (moles/volume) 138 mmol/L 135-145 Serum or plasma potassium measurement (moles/volume) 4.6 mmol/L 3.6-5.0 Serum or plasma chloride measurement (moles/volume) 107 mmol/L 98-107 Carbon dioxide 22 mmol/L 21-32 Serum or plasma anion gap determination (moles/volume) 9 mmol/L 5-14 Serum or plasma urea nitrogen measurement (mass/volume ) 12 mg/dL 7-18 Serum or plasma creatinine measurement (mass/volume) 0.88 mg/dL 0.60-1.30 Serum or plasma urea nitrogen/creatinine mass ratio 14 NRG Serum or plasma creatinine measurement w ith calculation of estimated glomerular filtration rate > NRG Serum or plasma glucose measurement (mass/volume) 75 mg/dL 70-105 Serum or plasma calcium measurement (mass/volume) 9.2 mg/dL 8.5-10.1 Serum or plasma total bilirubin measurement (mass/volu me) 0.9 mg/dL 0.1-1.0 Serum or plasma alkaline phosphatase hortencia surement (enzymatic activity/volume) 102 U/L 40-136 Serum or plasma aspartate aminotransfera se measurement (enzymatic activity/volume) 19 U/L 5-34 Serum or plasma alanine aminotransferase measurement (enzymatic activity/volume) 9 U/L 0-55 Serum or plasma protein measurement (mass/volume) 7.5 g/dL 6.4-8.2 Serum or plasma albumin measurement (mass/volume) 4.3 g/dL 3.2-4.5 Serum or plasma troponin i.cardiac measu rement (mass/volume) - 08/20/17 12:43 Serum or plasma troponin i.cardiac measurement (mass/v olume) < ng/mL <0.30 Arterial blood gas measurement - 8 13:27 Blood pCO2 27 mm[Hg] 35-45 Blood pO2 263 mm[Hg] 79-93 Arterial blood bicarbonate measurement (moles/volume) 22 mmol/L 23-27 Arterial blood base excess by calculation -0.9 mmo l/L -2.5-2.5 Arterial blood oxygen saturation measurement 100 % 94-100 * Inhaled oxygen flow rate 12 L NRG Arterial blood pH measurement with patient temperature correction 7.51 7.37-7.43 Arterial blood carbon dioxide, total measurement (mole s/volume) 22.8 mmol/L 21.0-31.0 Body site RT WRIST NRG Assessment of wrist artery patency prior to arterial p uncture YES-POS NRG Setting of ventilation mode NO NR G Measurement of body temperature 97.5 NRG Blood carboxyhemoglobin/total hemoglobin - 08/20/17 14:59 Blood carboxyhemoglobin/total hemoglobin 5.2 % 0.5-2.5 Encounters ACCT No. Visit Date/Time Discharge Status Pt. Type Provider Facility Loc./Unit Complaint [id number] 08/20/2017 12:20:00 018 15:54:00 DIS Emergency JOSE PÉREZ APRN [facility] POSS CARB MONO EXPOSURE [id number] 12/11/2016 21:51:00 017 02:30:00 DIS Emergency CATHLEEN BERRY MD [facility] ABD PAIN [id number] 08/27/2016 18:03:00 017 21:13:00 DIS Emergency SHARMIN GARCIA DO a [facility] ER STOMACH PAIN [id number] 08/07/2016 13:03:00 017 23:59:59 CLS Outpatient JOSE BYRD APRN [facility] CARD INTERMITTENT CHEST ALLEN N [id number] 08/06/2016 10:53:00 017 23:59:59 CLS Outpatient JOSE BYRD APRN [facility] RAD DIZZY,LIGHT HEADED, HE ADACHE,NECK PAIN [id number] 01/11/2016 02:38:00 016 02:38:00 CAN Preadmit SHARMIN GARCIA DO [facility] ER [place]
--- OUTSIDE RECORDS SUMMARY | 2019-12-21 08:34 | XMS REPORT ---
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 Encounters Encounter Date Encounter Type Encounter Diagnosis Care Provider Facility Start: Emergency department CATHLEEN BERRY MD [facility] 12-21-2019 patient visit [facility] Start: Patient encounter JOSE PÉREZ Not Availab le ([id number]) 08-20-2017 procedure Start: Emergency department CATHLEEN BERRY MD Not Available ([id number]) 12-11-2016 patient visit End: 12-12-2016 Start: Patient encounter CATHLEEN BERRY MD Not Av ailable ([id number]) 12-11-2016 procedure Start: Emergency department SHARMIN GARCIA DO Not Avai lable ([id number]) 08-27-2016 patient visit End: 08-27-2016 Start: Patient encounter JOSE BYRD Not Availab le ([id number]) 08-07-2016 procedure Start: Patient encounter JOSE BYRD Not Availab le ([id number]) 08-06-2016 procedure Medical Equipment No Information Goals No Information Immunizations No Information Interventions No Information Medications No Information Payers No Information Plan of Treatment No Information Problems Active Problems Problem Problem Date Last Documented Episodic/Chr Provider Classificati Recorded Date onic on Conditions Dizziness and giddiness Episodic LAUREN BYRD associated with dizziness or vertigo (6 sources) E Codes: Other trade areas as the place of Ep isodic Place of occurrence of the external cause occurrence (3 sources) Headache; Headache Episodic JOSE BYRD including migraine (5 sources) Malaise and Other malaise Episodic fatigue (3 sources) Other Personal history of other diseases Episodic SHARMIN JOSE DO gastrointest of the digestive system inal disorders (13 sources) Poisoning by Toxic effect of carbon monoxide Epis odic nonmedicinal from utility gas, undetermi kassandra, substances initial encounter (3 sources) Spondylosis; Other cervical disc degeneration at Chronic JOSE BYRD intervertebr C6-C7 level al disc disorders; other back problems (2 sources) Substance-re Nicotine dependence, other tobacco Chronic SHARMIN JOSE DO lated product, uncomplicated ; disorders Translations: [Nicotine dep endence, (13 sources) cigarettes, uncomplicated] Past or Other Problems Problem Problem Date Last Documented Episodic/Chr Provider Classificati Recorded Date onic on Abdominal Unspecified abdominal pain ; Episodic SHARMIN JOSE DO pain Translations: [Upper abdomi nal (10 sources) pain, unspecified] Nonspecific Chest pain, unspecified Episodic LAUREN BYRD chest pain (1 source) Other Disorder of kidney and ureter, Episodic CATHLEEN diseases of unspecified ANGOON kidney and ureters (8 sources) Procedures No Information Results No Information Social History No Information Vital Signs No Information Functional Status The data below is from unstructured sources Query Response Date Gomez rded Comprehension Ability Understands Co ncepts August 20, 2017 12:56pm Mental Status No Information Advance Directives Directive Response Recor ded Date/Time Advance Directives No 12:56pm Health Care Power of Hospital Fellow No 08/20/17 12:56pm Organ Donor No 08/20/17 12:56pm Resuscitation Status Full Code 08/20/17 12:56pm Discharge Instructions No hospital discharge instruction information available. Additional Source Comments This clinical document has been generated using mPort software that has been certified by the Office of the National Coordinator for Health Information Technology (ONC 15.99.04.3023.Diam.31.00.0.624052) and the National Committee for Physician Liaison (NCQA, as an eMeasure certified technology). FOR RECORDS PERTAINING TO PATIENTS WHO ARE OR HAVE BEEN ENROLLED IN A CHEMICAL D EPENDENCY/SUBSTANCE ABUSE PROGRAM, SOME INFORMATION MAY BE OMITTED. This clinica l summary was aggregated from multiple sources. Caution should be exercised in using it in the provision of clinical care. This summary normalizes information from multiple sources, and as a consequence, information in this document may ma terially change the coding, format and clinical context of patient data. In napoleon tion, data may be omitted in some cases. CLINICAL DECISIONS SHOULD BE BASED ON T HE PRIMARY CLINICAL RECORDS. [facility] [employer] [facility]. provides no warranty or guara ntee of the accuracy or completeness of information in this document.The followi information is based on time limited clinical information
[2019-12-21 08:40] LABS: BASOPHILS % (MANUAL) 0 %; EOSINOPHILS % (MANUAL) 0 %; LYMPHOCYTES % (MANUAL) 24 %; MONOCYTES % (MANUAL) 4 %; NEUTROPHILS % (MANUAL) 72 %
[2019-12-21 08:41] LABS: RBC MORPH NORMAL
[2019-12-21 09:54] VITALS: BP 164/106
== END 2019-12-21 10:04 | disposition home or self-care (01) ==
LOC: EDUNIT# 07:24 → ER 07:26
DX: R11.2 Nausea with vomiting, unspecified (principal); F12.188 Cannabis abuse with other cannabis-induced disorder; R10.13 Epigastric pain; F17.290 Nicotine dependence, other tobacco product, uncomplicated; Z87.19 Personal history of other diseases of the digestive system
CPT/HCPCS: 36415; 80053; 83735; 85007; 85027; 86141; 93005

== ENCOUNTER 2023-04-28 15:11 | Emergency (ER) | payer SELFPAY ==
[~2023-04-28] VITALS: Ht 198 cm; Wt 90.7 kg
[2023-04-28] MEDS ORDERED: fentaNYL INJECTION 100 MCG/2 ML VIAL IVP ONE (15:30)
[2023-04-28] MEDS ORDERED: NS IV 1000 ML 1,000 ML IV ONE (15:30)
[2023-04-28] MEDS ORDERED: ONDANSETRON INJECTION 4 MG/2 ML (SDV) IVP ONE (15:30)
[2023-04-28 15:51] LABS: ALBUMIN 4.3 GM/DL (3.2-4.5); CHLORIDE 104 MMOL/L (98-107); POTASSIUM 3.9 MMOL/L (3.6-5.0); SODIUM 139 MMOL/L (135-145)
[2023-04-28 15:52] LABS: BASOPHILS % (AUTO) 0 % (0-10); CALCIUM 9.8 MG/DL (8.5-10.1); EOSINOPHILS % (AUTO) 0 % (0-10); HEMATOCRIT 46 % (40-54); HEMOGLOBIN 15.7 g/dL (13.3-17.7); LYMPHOCYTES # (AUTO) 3.5 10^3/uL (1.0-4.0); LYMPHOCYTES % (AUTO) 30 % (12-44); MEAN CORPUSCULAR HEMOGLOBIN 30 pg (25-34); MEAN CORPUSCULAR HGB CONC 34 g/dL (32-36); MEAN CORPUSCULAR VOLUME 87 fL (80-99); MEAN PLATELET VOLUME 9.5 fL (9.0-12.2); MONOCYTES # (AUTO) 0.6 10^3/uL (0.0-1.0); MONOCYTES % (AUTO) 5 % (0-12); NEUTROPHILS # (AUTO) 7.4 10^3/uL (1.8-7.8); NEUTROPHILS % (AUTO) 64 % (42-75); PLATELET COUNT 270 10^3/uL (130-400); WHITE BLOOD COUNT 11.6 10^3/uL (4.3-11.0)
[2023-04-28 15:53] LABS: GLUCOSE 104 MG/DL (70-105); TOTAL PROTEIN 7.9 GM/DL (6.4-8.2)
--- NOTE | 2023-04-28 15:53 | ED Abdominal Pain ---
General Chief Complaint: Abdominal/GI Problems Stated Complaint: CHILLS, VOMITING, DENTAL PAIN, ABD PAIN Nursing Triage Note: PT ARRIVED POV WITH CC OF ABD PAIN AND DENTAL PAIN. PT STATES THAT HE DEVELOPED MEDIAL ABD PAIN AND N/V THAT STARTED TODAY. PT REPORTS THAT HE TOOK HIS FIRST DOSE OF AMOXICILLIN FOR DENTAL ABCESS ON THE RIGHT LOWER SIDE. Source of Information: Patient Exam Limitations: No Limitations History of Present Illness Date Seen by Provider: Apr 28, 2023 Time Seen by Provider: 15:50 Initial Comments This is a 53-year-old male to the clinic with complaints of mid epigastric abdominal pain that started over the past couple days and has progressively worsened today. He is currently taking amoxicillin for a dental abscess. States he has vomited too numerous to count. Unknown fever. Normal bowel mo vements, last movement today. Denies diarrhea no constipation. No chest pain, shortness of breath. Denies alcohol consumption or drug use. Allergies and Home Medications Allergies Coded Allergies: No Known Drug Allergies (Unverified , 08/27/16) Patient Home Medication List Home Medication List Reviewed: Yes No Active Prescriptions or Reported Meds Review of Systems Review of Systems Constitutional: no symptoms reported EENTM: No Symptoms Reported Respiratory: No Symptoms Reported Cardiovascular: No Symptoms Reported Gastrointestinal: See HPI Genitourinary: No Symptoms Reported Musculoskeletal: no symptoms reported Skin: no symptoms reported Psychiatric/Neurological: No Symptoms Reported Endocrine: No Symptoms Reported Hematologic/Lymphatic: No Symptoms Reported Past Pzfmgqg-Qzclml-Wmjgai Hx Patient Social History Tobacco Use?: Yes Tobacco type used: Cigars Substance use?: No Alcohol Use?: No Past Medical History Surgeries: Yes (EGD) Respiratory: No Cardiac: No Neurological: No Reproductive Disorders: No Genitourinary: No Gastrointestinal: Yes Pancreatitis, Esophagitis Musculoskeletal: No Endocrine: No HEENT: No Cancer: No Psychosocial: No Integumentary: No Blood Disorders: No Family Medical History No Pertinent Family Hx Physical Exam Vital Signs Vital Signs - First Documented 04/28/23 15:20 Temp 35.5 Pulse 62 B/P (MAP) 190/118 (142) Pulse Ox 100 O2 Delivery Room Air Capillary Refill : Height/Weight/BMI Height: 6'6.00" Weight: 190lbs. oz. 86.521997mv; 23.00 BMI Method:Stated General Appearance: WD/WN, no apparent distress HEENT: PERRL/EOMI, normal ENT inspection Neck: full range of motion, normal inspection Respiratory: lungs clear, normal breath sounds, no respiratory distress, no accessory muscle use Cardiovascular: regular rate, rhythm, no murmur Gastrointestinal: normal bowel sounds, soft, other (epigastric tenderness ) Extremities: normal range of motion, normal inspection, no pedal edema, normal capillary refill Neurologic/Psychiatric: no motor/sensory deficits, alert, normal mood/affect, oriented x 3 Skin: normal color, warm/dry Progress/Results/Core Measures Results/Orders Lab Results Laboratory Tests Test 04/28/23 15:30 04/28/23 17:07 Range/Units White Blood Count 11.6 H 4.3-11.0 10^3/uL Red Blood Count 5.32 4.30-5.52 10^6/uL Hemoglobin 15.7 13.3-17.7 g/dL Hematocrit 46 40-54 % Mean Corpuscular Volume 87 80-99 fL Mean Corpuscular Hemoglobin 30 25-34 pg Mean Corpuscular Hemoglobin Concent 34 32-36 g/dL Red Cell Distribution Width 14.3 10.0-14.5 % Platelet Count 270 130-400 10^3/uL Mean Platelet Volume 9.5 9.0-12.2 fL Immature Granulocyte % (Auto) 0 % Neutrophils (%) (Auto) 64 42-75 % Lymphocytes (%) (Auto) 30 12-44 % Monocytes (%) (Auto) 5 0-12 % Eosinophils (%) (Auto) 0 0-10 % Basophils (%) (Auto) 0 0-10 % Neutrophils # (Auto) 7.4 1.8-7.8 10^3/uL Lymphocytes # (Auto) 3.5 1.0-4.0 10^3/uL Monocytes # (Auto) 0.6 0.0-1.0 10^3/uL Eosinophils # (Auto) 0.0 0.0-0.3 10^3/uL Basophils # (Auto) 0.0 0.0-0.1 10^3/uL Immature Granulocyte # (Auto) 0.0 0.0-0.1 10^3/uL Sodium Level 139 135-145 MMOL/L Potassium Level 3.9 3.6-5.0 MMOL/L Chloride Level 104 98-107 MMOL/L Carbon Dioxide Level 22 21-32 MMOL/L Anion Gap 13 5-14 MMOL/L Blood Urea Nitrogen 7 7-18 MG/DL Creatinine 0.98 0.60-1.30 MG/DL Estimat Glomerular Filtration Rate 93 BUN/Creatinine Ratio 7 Glucose Level 104 70-105 MG/DL Calcium Level 9.8 8.5-10.1 MG/DL Corrected Calcium 9.6 8.5-10.1 MG/DL Magnesium Level 1.9 1.6-2.4 MG/DL Total Bilirubin 0.9 0.1-1.0 MG/DL Aspartate Amino Transf (AST/SGOT) 24 5-34 U/L Alanine Aminotransferase (ALT/SGPT) 21 0-55 U/L Alkaline Phosphatase 92 40-136 U/L Troponin I < 0.028 <0.028 NG/ML Total Protein 7.9 6.4-8.2 GM/DL Albumin 4.3 3.2-4.5 GM/DL Lipase 307 H 8-78 U/L Serum Alcohol < 10 <10 MG/DL Urine Opiates Screen POSITIVE H NEGATIVE Urine Oxycodone Screen NEGATIVE NEGATIVE Urine Methadone Screen NEGATIVE NEGATIVE Urine Barbiturates Screen NEGATIVE NEGATIVE Ur Tricyclic Antidepressants Screen NEGATIVE NEGATIVE Urine Phencyclidine Screen NEGATIVE NEGATIVE Urine Amphetamines Screen NEGATIVE NEGATIVE Urine Methamphetamines Screen NEGATIVE NEGATIVE Urine Benzodiazepines Screen NEGATIVE NEGATIVE Urine Cocaine Screen NEGATIVE NEGATIVE Urine Cannabinoids Screen POSITIVE H NEGATIVE My Orders Orders - GAIL ROMAN LIME BURNER Cbc And Automated Diff (04/28/23 15:25) Magnesium (04/28/23 15:25) Chest 1 View, Ap/Pa Only (04/28/23 15:25) Ekg Tracing (04/28/23 15:25) Comprehensive Metabolic Panel (04/28/23 15:25) O2 (04/28/23 15:25) Monitor-Rhythm Ecg Trace Only (04/28/23 15:25) Ed Iv/Invasive Line Start (04/28/23 15:25) Troponin I Emmanuel (04/28/23 15:25) Fentanyl Injection (Fentanyl Injection (04/28/23 15:30) Ns Iv 1000 Ml (Ns Iv 1000 Ml) (04/28/23 15:30) Ondansetron Injection (Ondansetron Inj (04/28/23 15:30) Lipase (04/28/23 16:03) Ct Abdomen/Pelvis W (04/28/23 16:25) Iohexol Injection (Omnipaque 350 Mg/Ml 1 (04/28/23 16:30) Received Contrast (Hold Metformin- Contr (04/28/23 16:30) Ns (Ivpb) 100 Ml (Sodium Chloride 0.9% 1 (04/28/23 16:30) Hydromorphone Injection (Hydromorphone (04/28/23 17:00) Drug Screen Stat (Urine) (04/28/23 17:03) Alcohol (04/28/23 17:05) Lactated Ringers 1,000 Ml (Lactated Ring (04/28/23 17:30) Medications Given in ED Current Medications Medications Dose Ordered Sig/Ayaka Route Start Time Stop Time Status Last Admin Dose Admin Fentanyl Citrate 50 mcg ONCE ONCE IVP 04/28/23 15:30 04/28/23 15:31 DC 04/28/23 15:37 50 MCG Hydromorphone HCl 0.5 mg ONCE ONCE IV 04/28/23 17:00 04/28/23 17:01 DC 04/28/23 17:04 0.5 MG Iohexol 100 ml ONCE ONCE IV 04/28/23 16:30 04/28/23 16:31 DC 04/28/23 16:47 80 ML Lactated Ringer's 1,000 ml @ 0 mls/hr Q0M ONCE IV 04/28/23 17:30 04/28/23 17:31 DC 04/28/23 17:30 0 MLS/HR Ondansetron HCl 4 mg ONCE ONCE IVP 04/28/23 15:30 04/28/23 15:31 DC 04/28/23 15:37 4 MG Sodium Chloride 100 ml ONCE ONCE IV 04/28/23 16:30 04/28/23 16:31 DC 04/28/23 16:47 80 ML Sodium Chloride 1,000 ml @ 0 mls/hr Q0M ONCE IV 04/28/23 15:30 04/28/23 15:31 DC 04/28/23 15:42 1,000 MLS/HR Vital Signs/I&O 04/28/23 04/28/23 04/28/23 15:20 15:37 18:25 Temp 35.5 35.5 Pulse 62 61 B/P (MAP) 190/118 (142) 150/86 Pulse Ox 100 98 O2 Delivery Room Air Room Air Blood Pressure Mean: 142 Progress Progress Note : Progress Note Patient examined in significant pain. Given he is having epigastric tenderness, noted elevated blood pressure. We will go ahead and add EKG and troponin to work-up. Orders placed for CBC, CMP, lipase. We will start IV access and give fentanyl 50 mcg IV, Zofran 4 mg IV and start normal saline bolus. Vital stable. Will consider CT abd/pelvis w contrast if elevated WBC or lipase. Labs reviewed, WBC slightly elevated 11.6, hemoglobin hematocrit normal, platelets normal. CMP grossly unremarkable. Lipase elevated at 307. Orders placed for CT abdomen pelvis with contrast. CT was negative for acute findings, no evidence of pancreatitis on CT exam. Was given fentanyl 50 mcg IV push which did control his pain for a brief while, when pain returned he was given dose of Dilaudid 0.5 mg IV push and had significant improvement of pain. Had a total of 2 L IV fluids in the ER. Will discharge home with clear liquids and strict return precautions. Discharge plan reviewed with patient and he is agreeable with plan. Discussed with Dr. Moreno, hospitalist on-call and she is agreeable with plan. Diagnostic Imaging Diagonstic Imaging: CT Comments [facility] [place] [place] NAME: GISELPAUL Charles [facility] REC#: [id number] PT STATUS: REG ER : 1970 PHYSICIAN: GAIL ROMAN LIME BURNER ADMIT DATE: 04/28/23/ER Signed Date of Exam:04/28/23 CT ABDOMEN/PELVIS W EXAMINATION: CT abdomen and pelvis with intravenous contrast. TECHNIQUE: Multiple contiguous axial images were obtained through the abdomen and pelvis after the uneventful administration of intravenous contrast. All CT scans use one or more of the following dose optimizing techniques: automated exposure control, MA and/or KvP adjustment based on patient size and exam type or iterative reconstruction. HISTORY: Abdominal pain, elevated lipase. COMPARISON: 12/12/2016 FINDINGS: Lung bases: Bibasilar dependent atelectasis. Solid organs: The liver is normal without focal lesion. The gallbladder is normal. There is no biliary ductal dilation. The pancreas is normal. Spleen is normal. Adrenal glands are normal. The kidneys are normal without hydronephrosis. Bowel: The stomach and small bowel are normal without obstruction. The colon is normal. The appendix is normal. Peritoneum: There is no intraperitoneal free fluid or free air. No suspicious lymphadenopathy. Vasculature: Normal without aneurysm. Musculoskeletal: Degenerative changes of the spine without suspicious osseous lesion or compression fracture. Pelvis: The prostate gland is normal. The urinary bladder is normal. IMPRESSION: 1. No acute abnormality in the abdomen or pelvis. Dictated by: Dictated on workstation # [id number] Dict: 04/28/231653 Trans: 04/28/231657 [facility] [id number] Interpreted by: MITALI HEREDIA DO Electronically signed by: MITALI HEREDIA DO 04/28/231657 Plain Films/CT/US/NM/MRI: chest [facility] [place] [place] NAME: PAUL BATRES [facility] REC#: [id number] PT STATUS: REG ER : 1970 PHYSICIAN: GAIL ROMAN LIME BURNER ADMIT DATE: 04/28/23/ER Signed Date of Exam:04/28/23 CHEST 1 VIEW, AP/PA ONLY CLINICAL INDICATION: Patient with chest pain. EXAM: Portable chest x-ray, upright view. COMPARISON: Chest x-ray dated 08/20/2017. FINDINGS: Lungs/pleura: Lungs are clear. There is no pneumothorax. There is no pleural effusion. Mediastinum: Unremarkable. Pulmonary vasculature: Unremarkable. Heart: Unremarkable. Bones/extrathoracic soft tissue: Unremarkable. IMPRESSION: There is no radiographic evidence of acute cardiopulmonary process. Dictated by: Dictated on workstation # [id number] Dict: 04/28/23 1557 Trans: 04/28/231713 [id number] Interpreted by: MARITZA SANCHEZ MD Electronically signed by: MARITZA SANCHEZ MD 04/28/234 Departure Communication (Admissions) Time/Spoke to Consulting Phy: 18:08 Dr. Moreno hospitalist wildfire prevention specialist, reviewed case and discussed that pain is under control after Fentanyl and Dilaudid, had total of 2 LPM in clinic. Okay to discharge home with strict return precautions. Impression Primary Impression: Pancreatitis Disposition: HOME, SELF-CARE Condition: Improved Departure-Patient Inst. Decision time for Depature: 18:09 Referrals: GENE GOMES MD (PCP/Family) Primary Care Physician Patient Instructions: Acute pancreatitis Add. Discharge Instructions: Plan: 1. Clear liquids for next 48 hours. 2. Follow up with PCP in the next 2 days. 3. Return to ER if you have worsening pain or new symptoms. 4. Stop smoking marijuana. All discharge instructions reviewed with patient and/or family. Voiced understanding. Scripts No Active Prescriptions or Reported Meds GAIL ROMAN LIME BURNER Apr 28, 2023 15:53
[2023-04-28 15:54] LABS: CARBON DIOXIDE 22 MMOL/L (21-32)
[2023-04-28 15:55] LABS: BILIRUBIN,TOTAL 0.9 MG/DL (0.1-1.0)
[2023-04-28 15:57] LABS: ALKALINE PHOSPHATASE 92 U/L (40-136); CREATININE SERUM 0.98 MG/DL (0.60-1.30); GFR ESTIMATED 93
[2023-04-28 15:58] LABS: BUN/CREATININE RATIO 7
[2023-04-28 16:00] LABS: ALANINE AMINOTRANSFERASE 21 U/L (0-55); MAGNESIUM 1.9 MG/DL (1.6-2.4)
--- NOTE | 2023-04-28 16:00 | Diagnostic Imaging Report ---
CLINICAL INDICATION: Patient with chest pain. EXAM: Portable chest x-ray, upright view. COMPARISON: Chest x-ray dated 08/20/2017. FINDINGS: Lungs/pleura: Lungs are clear. There is no pneumothorax. There is no pleural effusion. Mediastinum: Unremarkable. Pulmonary vasculature: Unremarkable. Heart: Unremarkable. Bones/extrathoracic soft tissue: Unremarkable. IMPRESSION: There is no radiographic evidence of acute cardiopulmonary process. Dictated by: Dictated on workstation # [id number]
[2023-04-28] MEDS ORDERED: IOHEXOL 350 MG/ML 100 ML (OMNIPAQUE 350) VIAL IV ONE (16:30)
[2023-04-28] MEDS ORDERED: NS 100 ML (IVPB) BAG IV ONE (16:30)
[2023-04-28] MEDS ORDERED: HOLD METFORMIN - RECEIVED CONTRAST 20 ML VIAL IV SCH (16:30)
--- NOTE | 2023-04-28 16:57 | Diagnostic Imaging Report ---
EXAMINATION: CT abdomen and pelvis with intravenous contrast. TECHNIQUE: Multiple contiguous axial images were obtained through the abdomen and pelvis after the uneventful administration of intravenous contrast. All CT scans use one or more of the following dose optimizing techniques: automated exposure control, MA and/or KvP adjustment based on patient size and exam type or iterative reconstruction. HISTORY: Abdominal pain, elevated lipase. COMPARISON: 12/12/2016 FINDINGS: Lung bases: Bibasilar dependent atelectasis. Solid organs: The liver is normal without focal lesion. The gallbladder is normal. There is no biliary ductal dilation. The pancreas is normal. Spleen is normal. Adrenal glands are normal. The kidneys are normal without hydronephrosis. Bowel: The stomach and small bowel are normal without obstruction. The colon is normal. The appendix is normal. Peritoneum: There is no intraperitoneal free fluid or free air. No suspicious lymphadenopathy. Vasculature: Normal without aneurysm. Musculoskeletal: Degenerative changes of the spine without suspicious osseous lesion or compression fracture. Pelvis: The prostate gland is normal. The urinary bladder is normal. IMPRESSION: 1. No acute abnormality in the abdomen or pelvis. Dictated by: Dictated on workstation # [id number]
[2023-04-28] MEDS ORDERED: HYDROmorphone INJECTION 2 MG/ML VIAL IV ONE (17:00)
[2023-04-28 17:24] LABS: AMPHETAMINE SCREEN, URINE NEGATIVE (NEGATIVE); BARBITURATE SCREEN URINE NEGATIVE (NEGATIVE); CANNABINOID SCREEN, URINE POSITIVE (NEGATIVE); COCAINE SCREEN URINE NEGATIVE (NEGATIVE); METHADONE STAT NEGATIVE (NEGATIVE); OPIATE SCREEN URINE POSITIVE (NEGATIVE); OXYCODONE STAT NEGATIVE (NEGATIVE); TRICYCLIC ANTIDEPRESSANTS SCRE NEGATIVE (NEGATIVE)
[2023-04-28] MEDS ORDERED: LACTATED RINGERS 1,000 ML 1,000 ML IV ONE (17:30)
[2023-04-28 18:25] VITALS: BP 150/86
[2023-04-29] MEDS ORDERED: OXYC1TAB87 PO (18:25)
[2023-04-29] MEDS ORDERED: PANT40TA2 PO (18:25)
[2023-04-29] MEDS ORDERED: ONDA4TAB11 SL (18:25)
== END 2023-04-28 18:29 | disposition home or self-care (01) ==
LOC: EDUNIT# 15:11 → ER 15:14
DX: K85.90 Acute pancreatitis without necrosis or infection, unspecified (principal); K04.7 Periapical abscess without sinus; R03.0 Elevated blood-pressure reading, without diagnosis of hypertension; F17.210 Nicotine dependence, cigarettes, uncomplicated
CPT/HCPCS: 71045; 74177; 80053; 80306; 83690; 83735; 84484; 85025; 93005; 93041; 99284; G0480; 36415; 80320

== ENCOUNTER 2023-04-29 16:17 | Emergency (ER) | payer SELFPAY ==
[2023-04-29] MEDS ORDERED: morphine INJ 10 MG/ML 1ML (SYR OR VIAL) IVP STA ×2 (16:39→18:21)
[2023-04-29] MEDS ORDERED: ONDANSETRON INJECTION 4 MG/2 ML (SDV) IVP ONE (16:45)
[2023-04-29] MEDS ORDERED: LACTATED RINGERS 1,000 ML 1,000 ML IV ONE (16:45)
[2023-04-29 16:48] LABS: BASOPHILS % (AUTO) 0 % (0-10); EOSINOPHILS % (AUTO) 0 % (0-10); HEMATOCRIT 48 % (40-54); LYMPHOCYTES # (AUTO) 4.4 10^3/uL (1.0-4.0); LYMPHOCYTES % (AUTO) 36 % (12-44); MEAN CORPUSCULAR HEMOGLOBIN 30 pg (25-34); MEAN CORPUSCULAR HGB CONC 34 g/dL (32-36); MEAN CORPUSCULAR VOLUME 88 fL (80-99); MEAN PLATELET VOLUME 8.8 fL (9.0-12.2); MONOCYTES # (AUTO) 0.7 10^3/uL (0.0-1.0); MONOCYTES % (AUTO) 5 % (0-12); NEUTROPHILS # (AUTO) 7.2 10^3/uL (1.8-7.8); NEUTROPHILS % (AUTO) 58 % (42-75); PLATELET COUNT 275 10^3/uL (130-400); WHITE BLOOD COUNT 12.4 10^3/uL (4.3-11.0)
--- NOTE | 2023-04-29 16:48 | ED Abdominal Pain ---
General Chief Complaint: Abdominal/GI Problems Stated Complaint: PANCREATITIS PAIN, HASN'T RECIEVED MEDICATION Nursing Triage Note: PT AMB TO RM 3 PT CO OF ABD PAIN FROM PANCREATISIS, PT WAS SEEN IN ED YESTERDAY. RATES PAIN 10/10 AT THIS X. PT STATES PAIN GOES AWAY WHEN TAKES A HOT SHOWER Source of Information: Patient, Old Records Exam Limitations: No Limitations History of Present Illness Date Seen by Provider: Apr 29, 2023 Time Seen by Provider: 16:22 Allergies and Home Medications Allergies Coded Allergies: No Known Drug Allergies (Unverified , 08/27/16) Patient Home Medication List No Active Prescriptions or Reported Meds Past Inebxug-Egfkxm-Iwffme Hx Patient Social History Tobacco Use?: Yes Tobacco type used: Cigars Smoking Status: Current Everyday Smoker Substance use?: No Additional substance use comme: STOPPED MARIJUANA 1 MONTH AGO Alcohol Use?: No Pt feels they are or have been: No Past Medical History Surgery/Hospitalization HX: PANCREATISIS Surgeries: Yes (EGD) Respiratory: No Cardiac: No Neurological: No Reproductive Disorders: No Genitourinary: No Gastrointestinal: Yes Pancreatitis, Esophagitis Musculoskeletal: No Endocrine: No HEENT: No Cancer: No Psychosocial: No Integumentary: No Blood Disorders: No Family Medical History No Pertinent Family Hx Physical Exam Vital Signs Vital Signs - First Documented 04/29/23 16:35 Temp 36.4 Pulse 63 Resp 18 B/P (MAP) 197/115 (142) Pulse Ox 100 Capillary Refill : Less Than 3 Seconds Height/Weight/BMI Height: 6'6.00" Weight: 190lbs. oz. 86.759262so; 23.00 BMI Method:Stated Progress/Results/Core Measures Results/Orders Lab Results Laboratory Tests Test 04/29/23 16:40 Range/Units White Blood Count 12.4 H 4.3-11.0 10^3/uL Red Blood Count 5.43 4.30-5.52 10^6/uL Hemoglobin 16.0 13.3-17.7 g/dL Hematocrit 48 40-54 % Mean Corpuscular Volume 88 80-99 fL Mean Corpuscular Hemoglobin 30 25-34 pg Mean Corpuscular Hemoglobin Concent 34 32-36 g/dL Red Cell Distribution Width 14.5 10.0-14.5 % Platelet Count 275 130-400 10^3/uL Mean Platelet Volume 8.8 L 9.0-12.2 fL Immature Granulocyte % (Auto) 0 % Neutrophils (%) (Auto) 58 42-75 % Lymphocytes (%) (Auto) 36 12-44 % Monocytes (%) (Auto) 5 0-12 % Eosinophils (%) (Auto) 0 0-10 % Basophils (%) (Auto) 0 0-10 % Neutrophils # (Auto) 7.2 1.8-7.8 10^3/uL Lymphocytes # (Auto) 4.4 H 1.0-4.0 10^3/uL Monocytes # (Auto) 0.7 0.0-1.0 10^3/uL Eosinophils # (Auto) 0.0 0.0-0.3 10^3/uL Basophils # (Auto) 0.0 0.0-0.1 10^3/uL Immature Granulocyte # (Auto) 0.0 0.0-0.1 10^3/uL Sodium Level 139 135-145 MMOL/L Potassium Level 3.8 3.6-5.0 MMOL/L Chloride Level 104 98-107 MMOL/L Carbon Dioxide Level 24 21-32 MMOL/L Anion Gap 11 5-14 MMOL/L Blood Urea Nitrogen 9 7-18 MG/DL Creatinine 1.02 0.60-1.30 MG/DL Estimat Glomerular Filtration Rate 88 BUN/Creatinine Ratio 9 Glucose Level 92 70-105 MG/DL Calcium Level 9.5 8.5-10.1 MG/DL Corrected Calcium 9.3 8.5-10.1 MG/DL Total Bilirubin 1.2 H 0.1-1.0 MG/DL Aspartate Amino Transf (AST/SGOT) 19 5-34 U/L Alanine Aminotransferase (ALT/SGPT) 19 0-55 U/L Alkaline Phosphatase 90 40-136 U/L Total Protein 8.0 6.4-8.2 GM/DL Albumin 4.3 3.2-4.5 GM/DL Lipase 190 H 8-78 U/L My Orders Orders - DIOR CASTILLO MD Ed Iv/Invasive Line Start (04/29/23 16:22) Cbc And Automated Diff (04/29/23 16:22) Comprehensive Metabolic Panel (04/29/23 16:22) Lipase (04/29/23 16:22) Morphine Injection (Morphine Injection (04/29/23 16:39) Ondansetron Injection (Ondansetron Inj (04/29/23 16:45) Lactated Ringers 1,000 Ml (Lactated Ring (04/29/23 16:45) Lidocaine 2% Viscous 15 Ml (Xylocaine Vi (04/29/23 17:15) Antacid Suspension (Antacid Suspension (04/29/23 17:15) Pantoprazole Injection (Pantoprazole Inj (04/29/23 17:15) Morphine Injection (Morphine Injection (04/29/23 18:21) Medications Given in ED Current Medications Medications Dose Ordered Sig/Ayaka Route Start Time Stop Time Status Last Admin Dose Admin Al Hydrox/Mg Hydrox/Simethicone 30 ml ONCE ONCE PO 04/29/23 17:15 04/29/23 17:16 DC 04/29/23 17:56 30 ML Lactated Ringer's 1,000 ml @ 0 mls/hr Q0M ONCE IV 04/29/23 16:45 04/29/23 16:46 DC 04/29/23 16:44 1,000 MLS/HR Lidocaine HCl 15 ml ONCE ONCE PO 04/29/23 17:15 04/29/23 17:16 DC 04/29/23 17:56 15 ML Ondansetron HCl 8 mg ONCE ONCE IVP 04/29/23 16:45 04/29/23 16:46 DC 04/29/23 16:44 8 MG Pantoprazole 40 mg ONCE ONCE IV 04/29/23 17:15 04/29/23 17:16 DC 04/29/23 17:56 40 MG Vital Signs/I&O 04/29/23 16:35 Temp 36.4 Pulse 63 Resp 18 B/P (MAP) 197/115 (142) Pulse Ox 100 Blood Pressure Mean: 142 Progress Progress Note #1: Time: 17:18 Progress Note Patient was interviewed and examined during triage process. Chart was reviewed. Labs were ordered at 1622 based off of chief complaint and review of chart. Patient was examined as he was triaged at 1631. Mild pancreatitis with lipase of 307 was noted in his workup yesterday. CT scan was unremarkable. Labs today were reviewed and interpreted by me. WBC count was 12.4 which was slightly elevated from yesterday's WBC count of 11.6. CBC was otherwise unremarkable. CMP was notable for very slight elevation in bilirubin of 1.2. This was up from 0.9 yesterday. Lipase had decreased from 307 yesterday down to 190 today. CMP was otherwise unremarkable. Patient was treated with morphine 5 mg and Zofran 8 mg IV. A liter of IV fluid was infused. Nausea has resolved but he is still having some pain. Pain seems to be focused in the epigastrium rather than the left upper quadrant. He also has history of possible esophagitis from prior ER visits. I am not completely convinced that his pain is due to pancreatitis and could alternatively be secondary to esophagitis and/or gastritis. A trial of GI cocktail is being administered now. Progress Note #2: Time: 18:22 Progress Note Patient reports he had brief and minimal reduction of his pain after GI cocktail. Pain was quickly rebounding again. I discussed options with the patient. He is hesitant about returning home until he has improvement of his symptoms. An observation visit to provide supportive care and gallbladder ultrasound in the morning is certainly reasonable. I will discuss with the attending physician. Departure Impression Primary Impression: Pancreatitis Qualified Codes: K85.90 - Acute pancreatitis without necrosis or infection, unspecified Additional Impressions: Epigastric pain Nausea History of marijuana use Departure-Patient Inst. Decision time for Depature: 18:25 Referrals: GENE GOMES MD (PCP/Family) Primary Care Physician Patient Instructions: Acute pancreatitis, Gastritis ED, Severe Abdominal Pain, Adult (DC), Ulcer and Gastritis Diet Add. Discharge Instructions: Start with a noncarbonated clear liquid diet and continue with clear liquids only until your pain significantly improves. This is the primary treatment for pancreatitis. Start your Protonix and acid medication as soon as possible. Continue taking until otherwise instructed by your primary care provider. Avoid the following is much as possible to reduce irritation of your stomach: Eating large meals, eating close to bedtime, caffeine, carbonation, citrus fruits and juices, tomato products, alcohol, tobacco, mints, marijuana, NSAID medications such as ibuprofen or naproxen, fatty/greasy foods, spicy foods, and anything else you know irritate your stomach. It is important to abstain from marijuana as marijuana can cause serious problems with abdominal pain and vomiting for several weeks after your last use. Use your pain medication as prescribed. Please be advised Percocet may cause drowsiness. You should not drive, operate machinery, or make important decisions while on this medication. Use the Zofran (ondansetron) as prescribed for nausea or vomiting. Follow-up with your primary care provider soon as possible. Please make an appointment first thing tomorrow morning. Return to the emergency room if you have worsening symptoms despite following these instructions. All discharge instructions reviewed with patient and/or family. Voiced understanding. Scripts Pantoprazole Sodium (Protonix) 40 Mg Tablet.dr 40 MG PO DAILY, #30 TAB Prov: DIOR CASTILLO MD 04/29/23 Oxycodone HCl/Acetaminophen (Percocet 5-325 mg Tablet) 1 Each Tablet 1 TAB PO Q4H PRN for PAIN-MODERATE (5-7) MDD 6 TABS, #10 TAB Prov: DIOR CASTILLO MD 04/29/23 Ondansetron (Ondansetron Odt) 4 Mg Tab.rapdis 4 MG SL Q4H PRN for NAUSEA/VOMITING, #10 TAB Prov: DIOR CASTILLO MD 04/29/23 DIOR CASTILLO MD Apr 29, 2023 16:48
[2023-04-29 16:58] LABS: ALBUMIN 4.3 GM/DL (3.2-4.5); POTASSIUM 3.8 MMOL/L (3.6-5.0)
[2023-04-29 16:59] LABS: CALCIUM 9.5 MG/DL (8.5-10.1)
[2023-04-29 17:02] LABS: BILIRUBIN,TOTAL 1.2 MG/DL (0.1-1.0)
[2023-04-29 17:04] LABS: CREATININE SERUM 1.02 MG/DL (0.60-1.30)
[2023-04-29] MEDS ORDERED: ANTACID SUSPENSION 30 ML UDC PO ONE (17:15)
[2023-04-29] MEDS ORDERED: PANTOPRAZOLE INJECTION 40 MG VIAL IV ONE (17:15)
[2023-04-29] MEDS ORDERED: LIDOCAINE 2% VISCOUS 15 ML UDC PO ONE (17:15)
[2023-04-29] MEDS ORDERED: PANT40TA2 PO (18:25)
[2023-04-29] MEDS ORDERED: ONDA4TAB11 SL (18:25)
[2023-04-29] MEDS ORDERED: OXYC1TAB87 PO (18:25)
[2023-04-29 18:33] VITALS: BP 169/85
== END 2023-04-29 18:33 | disposition home or self-care (01) ==
LOC: EDUNIT# 16:17 → ER 16:19
DX: K85.90 Acute pancreatitis without necrosis or infection, unspecified (principal); F17.290 Nicotine dependence, other tobacco product, uncomplicated; Z87.898 Personal history of other specified conditions
CPT/HCPCS: 36415; 80053; 83690; 85025